=== PATIENT | female | born 1960 | race Caucasian/White ===

== ENCOUNTER 2019-08-19 17:44 | Observation (INO) | payer SELFPAY ==
[2019-08-19] MEDS ORDERED: Acetaminophen 325 MG TAB ONE (18:40)
[2019-08-19 20:20] VITALS: BMI 41.1
[2019-08-19] MEDS ORDERED: Nitroglycerin 0.4 MG TAB (25 Tab Bottle) PO PRN (20:23)
[2019-08-19] MEDS ORDERED: hydrALAZINE 20 MG/ML VIAL SLOW IVP PRN (20:25)
[2019-08-19] MEDS ORDERED: Sodium Chloride 0.9% 1,000 ML IV SCH (20:30)
--- NOTE | 2019-08-19 20:52 | HP ---
PRIMARY CARE PROVIDER: Dr. Arsen Acosta. CHIEF COMPLAINT: Chest pain. HISTORY OF PRESENT ILLNESS: Ms. Shrestha is a pleasant 59-year-old lady, who was seen at [facility] on 08/19/2019, following transfer from emergency room at [facility]. She reports that around 11:30 am, she developed retrosternal chest pain, dull, 8/10, associated with right upper extremity numbness. No known aggravating or relieving factors, constant and lasted 1 hour. She denies any nausea or vomiting. She reports that it was accompanied by shortness of breath. She also endorses cough that is dry as well as some chills. In the emergency room at [facility], she was found to be in hypertensive urgency. She received treatment for that and was subsequently transferred to [facility] for further management. REVIEW OF SYSTEMS: All systems were reviewed and found to be negative except for the pertinent positives mentioned above. PAST MEDICAL HISTORY: Hepatitis C and supraventricular tachycardia. PAST SURGICAL HISTORY: Knee surgery x2. SOCIAL HISTORY: The patient smokes half a pack of cigarettes a day. She denies alcohol use or recreational drug use. FAMILY HISTORY: Congestive heart failure and COPD in her mother. ALLERGIES: NO KNOWN DRUG ALLERGIES. CURRENT MEDICATIONS: None. PHYSICAL EXAMINATION: GENERAL: On examination, Ms. Shrestha is awake and alert, not in acute distress. VITAL SIGNS: Blood pressure is 151/90, pulse 79, respiratory rate 15, and oxygen saturation 99% on room air. She is afebrile. EYES: No scleral icterus, no conjunctival pallor. ENT: Moist mucosal membranes. No oropharyngeal erythema or exudates. NECK: Supple, nontender, trachea is midline. RESPIRATORY: Accessory muscles of breathing are not active. Chest wall movements are symmetric bilaterally. Lungs are clear to auscultation without wheeze, rhonchi, or crepitations. CARDIOVASCULAR: S1 and S2 are heard, regular. Peripheral pulses palpable. ABDOMEN: Soft, nontender, bowel sounds are heard. NEUROLOGIC: Cranial nerves 2 through 12 are intact. MUSCULOSKELETAL: Power is 5/5 in all 4 extremities. SKIN: No rashes or subcutaneous nodules. LYMPHATIC: No cervical lymphadenopathy. PSYCHIATRIC: Normal mood, normal affect. The patient is oriented to person, place, and time. BODY HABITUS: Morbid obesity, with a BMI of 41.2. LABORATORY DATA: Ms. Shrestha's labs and investigations were reviewed. I reviewed her 12-lead electrocardiogram, which shows normal sinus rhythm, no ST changes to suggest an acute coronary syndrome. I also reviewed her chest x-ray, which does not show any pulmonary infiltrates. She has normal white count, normal hemoglobin, normal platelet count, normal sodium, normal potassium, normal creatinine, elevated AST of 89, elevated ALT of 150, normal total bilirubin, normal troponin-I and normal BNP. ASSESSMENT AND PLAN: Ms. Shrestha is a pleasant 59-year-old lady who was seen at [facility] on 08/19/2019. Her problem list includes: 1. Chest pain: Etiology unclear, but given her risk factors, we will obtain a stress test. She will be monitored on telemetry. 2. Transaminitis: The patient has isolated transaminitis. We will check CK level to rule out musculoskeletal etiology for transaminases. 3. Supraventricular tachycardia: The patient is currently not in supraventricular tachycardia. We will monitor on telemetry. 4. Hepatitis C: Not an active issue at this time. 5. Tobacco use: The patient has been counseled regarding tobacco cessation. She has declined nicotine patch. Many thanks for allowing me to participate in your patient's care. Please feel free to contact me with any questions or concerns. LEVEL OF RISK: High. LEVEL OF COMPLEXITY: High. Job ID: [id number]
[2019-08-19] MEDS ORDERED: Acetaminophen 325 MG TAB PO PRN (21:05)
[2019-08-19 21:37] LABS: Troponin I Less than 0.010 ng/mL (< 0.028)
[2019-08-20 04:51] LABS: #Basophils 0.1 thou/uL (0.0-0.2); #Eosinphils 0.3 thou/uL (0.0-0.7); #Lymphocytes 3.1 thou/uL (1.20-3.40); #Monocytes 0.5 thou/uL (0.11-0.59); #Neutrophils 3.6 thou/uL (1.40-6.50); %Basophils 1.2 % (0.0-1.0); %Eosinophils 3.3 % (0.0-10.0); %Lymphocytes 40.9 % (21.0-51.0); %Monocytes 6.8 % (0.0-10.0); %Neutrophils 47.8 % (42.0-75.0); Hemoglobin 14.6 g/dL (12.0-16.0); Mean Corpuscular HGB CONC 32.2 g/dL (32.0-36.0); Mean Corpuscular Hemoglobin 29.5 pg (27.0-31.0); Mean Corpuscular Volume 91.8 fL (78.0-98.0); Mean Platelet Volume 7.3 fL (7.4-10.4); Platelet Count 240 thou/uL (130-400); RBC Distribution Width 12.1 % (11.5-14.5); Red Blood Cell (RBC) Count 4.93 mill/uL (4.20-5.40); White Blood Cell (WBC) Count 7.5 thou/uL (4.8-10.8)
[2019-08-20 05:13] LABS: ALT (SGPT) 113 U/L (8-55); AST (SGOT) 57 U/L (5-34); Albumin 3.6 g/dL (3.5-5.0); Alkaline Phosphatase 71 U/L (40-110); Anion Gap 7 mmol/L (10-20); BUN (Urea Nitrogen) 18 mg/dL (9.8-20.1); Bilirubin, Total 0.5 mg/dL (0.2-1.2); Calc. Creatinine Clearance 113 mL/min (70-130); Carbon Dioxide 25 mmol/L (22-29); Chloride 112 mmol/L (98-107); Estimated GFR-MDRD 59; Globulin 3.1 g/dL (2.4-3.5); Glucose 112 mg/dL (70-105); Potassium 4.1 mmol/L (3.5-5.1); Protein, Total 6.7 g/dL (6.0-8.3); Sodium 140 mmol/L (136-145)
[2019-08-20 08:00] VITALS: TEMP 98.9
[2019-08-20] MEDS ORDERED: Aspirin 325 mg Enteric Coated Tablet PO SCH (09:00)
[2019-08-20] MEDS ORDERED: Amlodipine 5 MG TAB PO SCH (09:00)
--- NOTE | 2019-08-20 10:44 | NM ---
EXAM: Cardiac SPECT HISTORY: Chest pain PROTOCOL: Stress only, single isotope TYPE OF STRESS: Pharmacologic stress with adenosine was monitored and interpreted by Dr. Marroquin RADIOPHARMACEUTICAL: 30 mCi technetium 99m-sestamibi injected intravenously FINDINGS: Homogeneous tracer distribution is seen in the myocardial segments on the post stress images. Gated SPECT LVEF: 62% Wall motion exam: Normal IMPRESSION: Normal post stress myocardial perfusion scan.
[2019-08-20 11:42] VITALS: BP 126/65
--- NOTE | 2019-08-21 03:19 | DIS ---
DATE OF ADMISSION: 08/19/2019 DATE OF DISCHARGE: 08/20/2019 PRIMARY CARE PROVIDER: Arsen Acosta, DISCHARGE DIAGNOSES: 1. Chest pain. 2. Chest pain most likely secondary to musculoskeletal etiology. 3. Hypertensive urgency. CONDITION OF PATIENT ON THE DAY OF DISCHARGE: Stable. I assessed Ms. Shrestha on the day of discharge. She denies any chest pain or shortness of breath. Vital signs are stable. S1 and S2 are heard, regular. Lungs are clear to auscultation bilaterally. HOSPITAL COURSE: Ms. Shrestha is a pleasant 59-year-old lady, who was admitted to [facility] on August 19, 2019, for hypertensive urgency and chest pain. She was started on amlodipine with improvement in blood pressure. She underwent nuclear stress test, which was normal. Left ventricular ejection fraction was 62%. She also had a negative D-dimer to rule out pulmonary embolism. She is being discharged home in a stable condition. She has been advised to stop smoking. She has also been advised to check her blood pressure and heart rate 3 times a day and show the readings to her primary care provider. She does have elevated AST and ALT. She has been advised to follow up with primary care provider for investigation of the same. On the day of discharge, she has white count of 7500, hemoglobin 14.6, platelet count 240,000. Sodium 140, potassium 4.1, total bilirubin 0.5, AST 57, ALT 113, and alkaline phosphatase 71. CK level was normal during this hospitalization at 80. DISCHARGE DESTINATION: Home. POST-ACUTE CARE FOLLOWUP: With primary care provider in 3 to 5 days time. ACTIVITY: As tolerated. DIET: Heart healthy diet. Job ID: [id number]
== END 2019-08-20 15:07 | disposition home or self-care (01) ==
LOC: ERS 17:44 → 2SW 19:59
PROVIDERS: ADMIT Internal Medicine; ATTEND Internal Medicine
DX: R07.2 Precordial pain (principal); I16.0 Hypertensive urgency; F17.210 Nicotine dependence, cigarettes, uncomplicated; R74.0 Nonspecific elevation of levels of transaminase and lactic acid dehydrogenase [LDH]; Z82.49 Family history of ischemic heart disease and other diseases of the circulatory system
CPT/HCPCS: 36415; 78452; 80053; 82550; 85025; 85379; 93005; 93017; 94760; 96360; 96361; A9500; G0378; J0153

== ENCOUNTER 2019-11-11 18:39 | Inpatient (IN) | payer SELFPAY ==
[2019-11-11] MEDS ORDERED: Diltiazem 125 MG/25 ML ONE (19:39)
[2019-11-11] MEDS ORDERED: Diltiazem HCl 125 MG, Admixture Fee 1 EACH in Sodium Chloride 0.9% 100 ML IVPB SCH (23:45)
[2019-11-11] MEDS ORDERED: Ondansetron PF 4 MG/2 ML Vial IVP PRN (23:46)
[2019-11-11] MEDS ORDERED: Acetaminophen 325 MG TAB PO PRN (23:46)
[2019-11-11] MEDS ORDERED: Ondansetron ODT 4 MG TAB SL PRN (23:46)
[2019-11-12] MEDS ORDERED: Diltiazem HCl 125 MG, Admixture Fee 1 EACH in Sodium Chloride 0.9% 100 ML IVPB SCH ×2 (02:45→14:00)
[2019-11-12] MEDS ORDERED: Ondansetron ODT 4 MG TAB PO PRN (09:05)
[2019-11-12] MEDS ORDERED: Ondansetron PF 4 MG/2 ML Vial IVP PRN (09:05)
[2019-11-12] MEDS ORDERED: Senokot S 8.6-50 MG TAB PO PRN (09:05)
[2019-11-12 10:20] VITALS: BMI 41.3
[2019-11-12] MEDS: cefTRIAXone\\ROCEPHIN 1 GM in Sodium Chloride 0.9% 100 ML IVPB SCH (11:41)
[2019-11-12] MEDS: Azithromycin 250 MG TAB PO SCH (11:41)
--- NOTE | 2019-11-12 22:53 | HP ---
CHIEF COMPLAINT: Shortness of breath and cough. HISTORY OF PRESENT ILLNESS: A 59-year-old female, with a remote history of supraventricular tachycardia and hypertension, presenting with history of not able to breath completely and non-productive cough. Initially flu test was negative. CT PE negative. Chest x-ray showed right middle lobe infiltrate. She also had AFib with RVR and elevated white count of 11.8. The patient did not have any travel or sick contacts. She has a dog at home. She is transferred from [facility] after receiving 25 mg of diltiazem as well as 4 L of fluid. Her initial presentation suggestive of sepsis due to pneumonia along with AFib with RVR. REVIEW OF SYSTEMS: 13-point review of systems reviewed with the patient. The patient did have some subjective fever. No nausea, vomiting, abdominal pain, constipation, diarrhea, hematuria. She had some pleuritic pain. No headache, blurriness, tingling, numbness in her extremities. Rest of the review of systems is negative. ALLERGIES: SHE HAS NO KNOWN DRUG ALLERGIES. PAST MEDICAL HISTORY: Hypertension and a remote history of SVT. MEDICATIONS: Amlodipine 5 mg daily. SOCIAL HISTORY: She smokes less than pack a day for over 20 years. No alcohol use. FAMILY HISTORY: Father's health condition unknown. Mother had COPD and CHF. PHYSICAL EXAMINATION: VITAL SIGNS: Temperature 98.2, pulse 89, blood pressure is 143/76, saturating 93% in room air. GENERAL: The patient is alert, oriented, well-developed, well-nourished female , not in any acute distress. Does not appear toxic. HEENT: Pupils equal, round, reactive to light. Anicteric. Mucous membranes moist. CARDIOVASCULAR: She has tachycardia with irregular rhythm. No murmurs appreciated. LUNGS: Clear to auscultation bilaterally without wheezing, rales, or rhonchi. ABDOMEN: Soft, nontender, nondistended. Good bowel sounds. EXTREMITIES: Without any pitting edema. NEURO: No focal deficits. LABORATORY DATA: Her labs in [facility] showed white count of 11.8. TSH done here at the [facility] showed 2.68. IMPRESSION AND PLAN: This is a 59-year-old female, with a history of hypertension, presenting with; 1. Community-acquired pneumonia. 2. Sepsis secondary to pneumonia. 3. Atrial fibrillation with rapid ventricular response. First episode of atrial fibrillation and probably triggered by her pneumonia. She was started on Cardizem drip. I am going to initiate the Cardizem p.o. and wean her off the drip. If TSH is normal we will get the 2D echo. EP consult placed. Her CHADS-VASc score is 1. Probably need anticoagulation. I will await the echo report. If there is no valvular issues , consider starting her on Xarelto. 4. Hypertension. Again, we are starting her Cardizem p.o. We will not start her on her home regimen of Norvasc. 5. Community-acquired pneumonia. She is getting ceftriaxone and Zithromax. We will follow the clinical course. 6. Deep venous thrombosis prophylaxis. Lovenox. Job ID: [id number] MTDD
--- NOTE | 2019-11-13 03:20 | CON ---
DATE OF CONSULTATION: 11/12/2019 HISTORY OF PRESENT ILLNESS: I am seeing Ms. Shrestha at our [facility] Telemetry Floor as an electrophysiology curriculum consultant. Her problems are: 1. Newly found persisting atrial fibrillation/flutter. 2. Possible pneumonia/sepsis. 3. Elevated BMI. 4. Prior history of SVT. 5. History of negative stress test from 08/19/2019 with LVEF of 62%. 6. History of hepatitis C. ALLERGIES: NONE NOTED. MEDICATIONS: At home included amlodipine. SUBJECTIVE: Ms. Shrestha was admitted with progressive cough, fevers and was noted to be in irregular rapid heart rates, diagnosed with atrial flutter after adenosine administration. She was also found to have consolidation and infiltrate at the right posteromedial lung base. She was diagnosed with pneumonia, so receiving antibiotics. Overall, she is feeling better after IV diltiazem was administered. She currently has minimal cough. Denies PND or orthopnea. Has still some fatigue. Does not pass out. No PND or orthopnea noted. No neurological deficits. No bleeding issues. Rest of 12-point system otherwise unremarkable. PAST MEDICAL HISTORY: As above. The patient has history of SVT in the past and she was evaluated in 2017 in the [facility] with event monitor. She never had an EP study. She does not see a substitute nurse regularly. She denies any prior additional heart disease. SOCIAL HISTORY: She is a smoker. Denies EtOH or drug use. 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 PAST SURGICAL HISTORY: Significant for knee surgery x2. FAMILY HISTORY: Not contributory, but significant for heart failure and COPD in her mother. PHYSICAL EXAMINATION: VITAL SIGNS: Blood pressure 133/77, heart rate 92, respiratory rate is 18, and temperature 98.5 degrees Fahrenheit. GENERAL: Alert and oriented woman with elevated BMI. NECK: Supple. Jugular veins are difficult to visualize, but does not appear distended. CHEST: Coarse with few crackles at the base. HEART: Heart sounds are irregularly irregular. S1, S2 variable. No murmur or gallop. ABDOMEN: Benign. Bowel sounds positive. EXTREMITIES: Lower extremities without edema, clubbing, or cyanosis. Pulses are adequate. NEUROLOGIC: The patient is nonfocal. MUSCULOSKELETAL: No joint swelling or deformity. SKIN: Without rash. DATABASE: EKG is reviewed. Baseline EKG is consistent with typical isthmus-dependent atrial flutter on . Subsequent EKGs reveal atrial flutter, but conversion to sinus rhythm and then fibrillation is also noted transiently. Heart rates are improving with diltiazem. LABORATORY DATA: White cell count 11.8, hemoglobin is 18.7, platelet count is 429. The D-dimer is 0.62. Sodium 139, potassium 3.8, BUN is 18, and creatinine is 1.04. ASSESSMENT AND PLAN: Ms. Shrestha is a pleasant 59-year-old woman with markedly elevated BMI, hepatitis C, and history of supraventricular tachycardia, though that never been evaluated by EP/substitute nurse. She is now presenting with recurrent arrhythmia, appears to be typical isthmus-dependent atrial flutter in some morphologies. In addition, she also has transient atrial fibrillation and on occasion, she converts to sinus rhythm. I discussed the mechanism of her atrial arrhythmia with her. Clearly, she is symptomatic with the rhythm and rate, needs rate control at this point. She could be considered for invasive EP evaluation, possibly cavotricuspid isthmus ablation after recovery of her pneumonia. This could be done as in or outpatient. For now, continue antibiotic therapy and continue anticoagulation with full dose Lovenox. Routine echocardiogram would be helpful. We will follow up with you. Thank for allowing me to participate in the care of this patient. Job ID: [id number] SAM
[2019-11-13 04:49] LABS: #Basophils 0.1 thou/uL (0.0-0.2); #Eosinphils 0.3 thou/uL (0.0-0.7); #Lymphocytes 3.5 thou/uL (1.20-3.40); #Monocytes 0.9 thou/uL (0.11-0.59); #Neutrophils 5.7 thou/uL (1.40-6.50); %Basophils 0.6 % (0.0-1.0); %Eosinophils 3.2 % (0.0-10.0); %Lymphocytes 33.1 % (21.0-51.0); %Monocytes 8.7 % (0.0-10.0); %Neutrophils 54.4 % (42.0-75.0); Hemoglobin 14.4 g/dL (12.0-16.0); Mean Corpuscular HGB CONC 31.7 g/dL (32.0-36.0); Mean Corpuscular Hemoglobin 29.5 pg (27.0-31.0); Mean Corpuscular Volume 93.3 fL (78.0-98.0); Mean Platelet Volume 7.7 fL (7.4-10.4); Platelet Count 285 thou/uL (130-400); RBC Distribution Width 12.2 % (11.5-14.5); Red Blood Cell (RBC) Count 4.86 mill/uL (4.20-5.40); White Blood Cell (WBC) Count 10.5 thou/uL (4.8-10.8)
[2019-11-13 05:11] LABS: ALT (SGPT) 56 U/L (8-55); AST (SGOT) 38 U/L (5-34); Albumin 3.2 g/dL (3.5-5.0); Alkaline Phosphatase 68 U/L (40-110); Anion Gap 12 mmol/L (10-20); BUN (Urea Nitrogen) 10 mg/dL (9.8-20.1); Bilirubin, Total 0.5 mg/dL (0.2-1.2); Calc. Creatinine Clearance 143 mL/min (70-130); Calcium 8.8 mg/dL (7.8-10.44); Carbon Dioxide 20 mmol/L (22-29); Chloride 108 mmol/L (98-107); Estimated GFR-MDRD 77; Globulin 3.1 g/dL (2.4-3.5); Glucose 96 mg/dL (70-105); Magnesium 1.9 mg/dL (1.6-2.6); Protein, Total 6.3 g/dL (6.0-8.3); Sodium 136 mmol/L (136-145)
[2019-11-13] MEDS ORDERED: Enoxaparin Sodium 40 MG/0.4 ML SYRINGE SC SCH (09:00)
[2019-11-13] MEDS ORDERED: Azithromycin 200 MG/5 ML Oral Suspension PO SCH (09:00)
[2019-11-13] MEDS: Flecainide 50 MG TAB PO SCH ×2 (09:53→20:09)
[2019-11-13] MEDS: Azithromycin 250 MG TAB PO SCH (09:54)
[2019-11-13] MEDS: cefTRIAXone\\ROCEPHIN 1 GM in Sodium Chloride 0.9% 100 ML IVPB SCH (09:54)
--- NOTE | 2019-11-13 10:44 | PDOC.EP ---
- Subjective Date: 11/13/19 Time: 08:00 Interval History: follow up for atrial arrhythmias. Now in SR. Ongoing malaise with pneumonia. No cardiac complaints today. - Review of Systems Constitutional: reports: malaise, weakness. denies: fever, sweats Respiratory: reports: cough, SOB with excertion. denies: hemoptysis, pleuritic pain, shortness of breath, wheezing Cardiology: reports: chest pain, heart racing, light headedness, orthopnea, paroxysmal noc. dyspnea Gastrointestinal: reports: abdominal pain, constipation, diarrhea - Objective Allergies/Adverse Reactions: Allergies Allergy/AdvReac Type Severity Reaction Status Date / Time No Known Drug Allergies Allergy Verified 11/12/19 10:12 Current Medications Acetaminophen (Tylenol) 650 mg PO Q4H PRN PRN Reason: Headache/Fever/Mild Pain (1-3) Azithromycin (Zithromax) 500 mg PO DAILY [facility] Last Admin: 11/13/19 09:54 Dose: 500 mg Diltiazem HCl (Cardizem) 60 mg PO BID [facility] Last Admin: 11/13/19 09:54 Dose: 60 mg Diltiazem HCl (Cardizem) 30 mg PO Q6HR PRN PRN Reason: HR >120 sustained Enoxaparin Sodium (Lovenox) 80 mg SC 0900,2100 [facility] Flecainide Acetate (Tambocor) 50 mg PO BID [facility] Last Admin: 11/13/19 09:53 Dose: 50 mg Ceftriaxone Sodium 1 gm/ (Sodium Chloride) 100 mls @ 200 mls/hr IVPB Q24HR [facility] Last Admin: 11/13/19 09:54 Dose: 100 mls Ondansetron HCl (Zofran Odt) 4 mg PO Q6H PRN PRN Reason: Nausea/Vomiting Last Admin: 11/12/19 19:46 Dose: 4 mg Ondansetron HCl (Zofran) 4 mg IVP Q6H PRN PRN Reason: Nausea/Vomiting Senna/Docusate Sodium (Senokot S) 2 tab PO BID PRN PRN Reason: Constipation Sodium Chloride (Flush - Normal Saline) 10 ml IVF Q12HR [facility] Last Admin: 11/13/19 09:54 Dose: 10 ml Sodium Chloride (Flush - Normal Saline) 10 ml IVF PRN PRN PRN Reason: Saline Flush Vital Signs & Weight: Vital Signs Temp Pulse Resp BP Pulse Ox 11/13/19 07:55 98 F 75 18 109/53 L 95 11/13/19 03:40 98.1 F 71 18 128/66 96 11/13/19 00:00 97.9 F 71 20 110/57 L 97 Weight 248 lb 7 oz I/O: I/O 11/12/19 11/13/19 11/14/19 06:59 06:59 06:59 Intake Total 1010 Balance 1010 - Quality Measures Condition: Atrial Fibrillation/Flutter (hx or current) (starting xarelto) CV meds: Xarelto: Yes - Physical Exam General: alert & oriented x3, appears well, no apparent distress, speech clear, affect appropriate HEENT: mucus membranes moist, normocephaly Neck: supple neck, midline trachea, no JVD/HJR, no masses, no bruit, no lymphadenopathy, no thromegaly Cardiology: regular rate and rhythm, no murmur, regular rate, regular rhythm, PMI nondisplaced Lungs: decreased breath sounds (RML decreased otherwise CTA) Neurology: cranial nerve 2-12 intact, grossly intact, motor function intact, sensory function intact, negative rhomberg, coordination normal, no lateralizing findings - Chadsvasc Risk factors Hypertension: 1 Female: 1 Risk Score: 2 - Labs Result Diagrams: 11/13/19 04:20 11/13/19 04:20 - EKG Interpretation EKG Method: Telemetry EKG shows: Sinus rhythm - Assessment/Plan Assessment/Plan: 1. Newly found persisting atrial fibrillation/flutter. 2. Possible pneumonia/sepsis. 3. Elevated BMI. 4. Prior history of SVT. 5. History of negative stress test from 08/19/2019 with LVEF of 62%. 6. History of hepatitis C. Started on flecainide 50mg PO BID. May require higher dose with her obesity. Staring NOAC with Xarelto for Chads2-vasc score of 2 (female, HTN). Plan for outpatient ablation once recovered from pneumonia/medical issues.
--- NOTE | 2019-11-13 13:04 | PDOC.HOSPP ---
- Subjective Encounter Date: 11/13/19 Encounter Time: 10:25 Subjective: still has cough, dry. AC started, - Objective Vital Signs & Weight: Vital Signs (12 hours) Temp Pulse Resp BP Pulse Ox 11/13/19 11:44 97.9 F 70 20 133/63 97 11/13/19 07:55 98 F 75 18 109/53 L 95 11/13/19 03:40 98.1 F 71 18 128/66 96 Weight Weight 248 lb 7 oz I&O: 11/12/19 11/13/19 11/14/19 06:59 06:59 06:59 Intake Total 1010 Balance 1010 Result Diagrams: 11/13/19 04:20 11/13/19 04:20 Hospitalist ROS - Medication Medications: Active Medications Generic Name Dose Route Start Last Admin Trade Name Freq PRN Reason Stop Dose Admin Azithromycin 500 mg 11/12/19 09:00 11/13/19 09:54 Zithromax PO 500 mg DAILY BLANK Administration Diltiazem HCl 60 mg 11/12/19 21:00 11/13/19 09:54 Cardizem PO 60 mg BID BLANK Administration Flecainide Acetate 50 mg 11/13/19 09:00 11/13/19 09:53 Tambocor PO 50 mg BID BLANK Administration Ceftriaxone Sodium 1 gm/ 100 mls @ 200 mls/hr 11/12/19 10:00 11/13/19 09:54 Sodium Chloride IVPB 100 mls Q24HR BLANK Administration Ondansetron HCl 4 mg 11/12/19 09:05 11/12/19 19:46 Zofran Odt PO 4 mg Q6H PRN Administration Nausea/Vomiting Sodium Chloride 10 ml 11/12/19 21:00 11/13/19 09:54 Flush - Normal Saline IVF 10 ml Q12HR BLANK Administration - Exam General Appearance: NAD, awake alert Eye: PERRL ENT: normocephalic atraumatic Neck: supple Heart: irregular Respiratory: normal chest expansion, rales, rhonchi, wheezes Gastrointestinal: soft, non-tender, normal bowel sounds Musculoskeletal: normal tone Hosp A/P - Plan Afib w.. RVR Recurrent arrythmia hx of SVT and no intervention in the past Sepsis 2/2 PNA Comm acq pneumonia Hepatitis C --TSH in nl range --Echo 55%- no valve abn. -started on flecainide for rate control -SYLVIE batres. xcarelto [cr ok] -once clinically improved, plan for dc and outpt workup with EP. --appreciate the help from Dr. Calvert.
[2019-11-13] MEDS ORDERED: guaiFENesin 200 MG TAB PO SCH ×2 (13:15→17:00)
[2019-11-13] MEDS: guaiFENesin 200 MG TAB PO SCH ×2 (17:58→20:10)
[2019-11-13] MEDS: Rivaroxaban 10 MG TAB PO SCH (17:59)
[2019-11-13] MEDS ORDERED: Enoxaparin Sodium 80 MG/0.8 ML SYRINGE SC SCH (21:00)
[2019-11-13] MEDS ORDERED: Melatonin 3 MG TAB PO PRN (23:40)
[2019-11-13] MEDS ORDERED: Melatonin 3 MG TAB PO SCH (23:45)
[2019-11-14] MEDS: guaiFENesin 200 MG TAB PO SCH ×6 (01:46→20:05)
[2019-11-14 04:24] LABS: Anion Gap 12 mmol/L (10-20); BUN (Urea Nitrogen) 9 mg/dL (9.8-20.1); Calc. Creatinine Clearance 145 mL/min (70-130); Calcium 9.2 mg/dL (7.8-10.44); Carbon Dioxide 24 mmol/L (22-29); Chloride 107 mmol/L (98-107); Estimated GFR-MDRD 78; Glucose 96 mg/dL (70-105); Potassium 3.9 mmol/L (3.5-5.1); Sodium 139 mmol/L (136-145)
[2019-11-14] MEDS: Flecainide 50 MG TAB PO SCH ×2 (09:09→20:05)
[2019-11-14] MEDS: cefTRIAXone\\ROCEPHIN 1 GM in Sodium Chloride 0.9% 100 ML IVPB SCH (09:09)
[2019-11-14] MEDS: Azithromycin 250 MG TAB PO SCH (09:09)
[2019-11-14] MEDS ORDERED: Flecainide 50 MG TAB PO SCH (10:30)
--- NOTE | 2019-11-14 11:29 | PDOC.EP ---
- Subjective Date: 11/14/19 Time: 11:25 Interval History: follow up for atrial arrhythmias. having mild nausea today that resolved with zofran. having occasional heart racing but not reporting anything more than mild fatigue so far. - Review of Systems Constitutional: reports: weakness. denies: chills, fever, malaise, sweats Respiratory: reports: SOB with excertion. denies: cough, dry, hemoptysis, pleuritic pain, shortness of breath Cardiology: reports: heart racing, palpitations. denies: chest pain, edema, light headedness Gastrointestinal: reports: nausea. denies: abdominal pain, constipation, diarrhea, vomitting - Objective Allergies/Adverse Reactions: Allergies Allergy/AdvReac Type Severity Reaction Status Date / Time No Known Drug Allergies Allergy Verified 11/12/19 10:12 Current Medications Acetaminophen (Tylenol) 650 mg PO Q4H PRN PRN Reason: Headache/Fever/Mild Pain (1-3) Azithromycin (Zithromax) 500 mg PO DAILY [facility] Last Admin: 11/14/19 09:09 Dose: 500 mg Diltiazem HCl (Cardizem) 60 mg PO BID [facility] Last Admin: 11/14/19 09:09 Dose: 60 mg Diltiazem HCl (Cardizem) 30 mg PO Q6HR PRN PRN Reason: HR >120 sustained Flecainide Acetate (Tambocor) 100 mg PO Q12HR [facility] Flecainide Acetate (Tambocor) 50 mg PO NOW [facility] Stop: 11/14/19 12:00 Last Admin: 11/14/19 11:02 Dose: 50 mg Guaifenesin (Organ-I Nr) 400 mg PO Q4HR [facility] Stop: 11/15/19 17:01 Last Admin: 11/14/19 09:09 Dose: 400 mg Ceftriaxone Sodium 1 gm/ (Sodium Chloride) 100 mls @ 200 mls/hr IVPB Q24HR [facility] Last Admin: 11/14/19 09:09 Dose: 100 mls Melatonin (Melatonin) 3 mg PO HS PRN PRN Reason: Insomnia Ondansetron HCl (Zofran Odt) 4 mg PO Q6H PRN PRN Reason: Nausea/Vomiting Last Admin: 11/12/19 19:46 Dose: 4 mg Ondansetron HCl (Zofran) 4 mg IVP Q6H PRN PRN Reason: Nausea/Vomiting Last Admin: 11/14/19 09:10 Dose: 4 mg Rivaroxaban (Xarelto) 20 mg PO 1700 BLANK Last Admin: 11/13/19 17:59 Dose: 20 mg Senna/Docusate Sodium (Senokot S) 2 tab PO BID PRN PRN Reason: Constipation Sodium Chloride (Flush - Normal Saline) 10 ml IVF Q12HR BLANK Last Admin: 11/14/19 09:15 Dose: 10 ml Sodium Chloride (Flush - Normal Saline) 10 ml IVF PRN PRN PRN Reason: Saline Flush Vital Signs & Weight: Vital Signs Temp Pulse Resp BP Pulse Ox 11/14/19 07:48 96 11/14/19 07:43 98.0 F 107 H 18 128/79 96 11/14/19 03:44 98.6 F 65 20 124/65 95 Weight 248 lb 7 oz I/O: I/O 11/13/19 11/14/19 11/15/19 06:59 06:59 06:59 Intake Total 1010 2040 Output Total 750 Balance 1010 1290 - Quality Measures Condition: Atrial Fibrillation/Flutter (hx or current) (starting xarelto) CV meds: Xarelto: Yes - Physical Exam General: alert & oriented x3, appears well, no apparent distress, speech clear, affect appropriate HEENT: mucus membranes moist, normocephaly, EOMI Neck: supple neck, midline trachea, no JVD/HJR Cardiology: irregularly irregular, tachycardia Lungs: clear to auscultation, normal breath sounds, no wheeze, rales, rhonchi Neurology: cranial nerve 2-12 intact, grossly intact, sensory function intact Abdomen: unremarkable, active bowel sounds, no pulsations/bruits Extremities: dry, strong pulses, warm - Labs Result Diagrams: 11/13/19 04:20 11/14/19 03:55 - EKG Interpretation EKG Method: Telemetry EKG shows: Atypical atrial flutter (paroxysmal A Fib/ flutter) - Assessment/Plan Assessment/Plan: 1. Newly found persisting atrial fibrillation/flutter. 2. Possible pneumonia/sepsis. 3. Elevated BMI. 4. Prior history of SVT. 5. History of negative stress test from 08/19/2019 with LVEF of 62%. 6. History of hepatitis C. Started on flecainide 50mg PO BID and is having paroxysmal episodes of Atrial flutter with RVR. Flecainide is working to organize fib in to flutter but dose increased to 100mg BID to maintain SR more effectively. Minimally symptomatic with RVR. Now on Xarelto for Chads2-vasc score of 2 (female, HTN). Plan for outpatient ablation once recovered from pneumonia/medical issues. watch for QTc prolongation with flecainide concurrent with remaining azithromycin and zofran. 12 lead EKG ordered.
--- NOTE | 2019-11-14 14:08 | PDOC.HOSPP ---
- Subjective Encounter Date: 11/14/19 Encounter Time: 11:30 Subjective: less oucgh, but not feeling good, stomach queasy and no pain. aflutter, flecainide dose increased; pt has finfer tip numbness, chronic and vascular, venous insuff'y in the LE - Objective Vital Signs & Weight: Vital Signs (12 hours) Temp Pulse Resp BP Pulse Ox 11/14/19 11:53 97.5 F L 144 H 14 130/70 95 11/14/19 07:48 96 11/14/19 07:43 98.0 F 107 H 18 128/79 96 11/14/19 03:44 98.6 F 65 20 124/65 95 Weight Weight 248 lb 7 oz I&O: 11/13/19 11/14/19 11/15/19 06:59 06:59 06:59 Intake Total 1010 2040 Output Total 750 Balance 1010 1290 Result Diagrams: 11/13/19 04:20 11/14/19 03:55 Hospitalist ROS - Medication Medications: Active Medications Generic Name Dose Route Start Last Admin Trade Name Freq PRN Reason Stop Dose Admin Azithromycin 500 mg 11/12/19 09:00 11/14/19 09:09 Zithromax PO 500 mg DAILY BLANK Administration Diltiazem HCl 60 mg 11/12/19 21:00 11/14/19 09:09 Cardizem PO 60 mg BID BLANK Administration Guaifenesin 400 mg 11/13/19 17:00 11/14/19 13:06 Organ-I Nr PO 11/15/19 17:01 400 mg Q4HR BLANK Administration Ceftriaxone Sodium 1 gm/ 100 mls @ 200 mls/hr 11/12/19 10:00 11/14/19 09:09 Sodium Chloride IVPB 100 mls Q24HR BLANK Administration Ondansetron HCl 4 mg 11/12/19 09:05 11/12/19 19:46 Zofran Odt PO 4 mg Q6H PRN Administration Nausea/Vomiting Ondansetron HCl 4 mg 11/12/19 09:05 11/14/19 09:10 Zofran IVP 4 mg Q6H PRN Administration Nausea/Vomiting Rivaroxaban 20 mg 11/13/19 17:00 11/13/19 17:59 Xarelto PO 20 mg 1700 BLANK Administration Sodium Chloride 10 ml 11/12/19 21:00 11/14/19 09:15 Flush - Normal Saline IVF 10 ml Q12HR BLANK Administration - Exam General Appearance: NAD, awake alert Eye: PERRL ENT: normocephalic atraumatic Neck: supple Heart: RRR Respiratory: CTAB Gastrointestinal: normal bowel sounds Neurological: cranial nerve grossly intact, no focal deficits Hosp A/P - Plan Afib w.. RVR Recurrent arrythmia hx of SVT and no intervention in the past Sepsis 2/2 PNA Comm acq pneumonia Hepatitis C --TSH in nl range --Echo 55%- no valve abn. -started on flecainide for rate control -AC w.. xarelto [cr ok] -once clinically improved, plan for dc and outpt workup with EP. --appreciate the help from Dr. Calvert. chronic tingling and numbness ion her left hand fingers -pt not diabetic. - can start neurontin or lyrica as op. chronic venous insufficienty in LE -none urgent for the above 2 - PCP followup. once clinically better and EP clears, plan for dc home.
[2019-11-14] MEDS ORDERED: Metoprolol Tartrate 5 MG/5 ML VIAL IVP PRN (14:49)
--- NOTE | 2019-11-14 15:45 | PDOC.HOSPP ---
- Subjective Encounter Date: 11/14/19 Encounter Time: 10:00 - Objective Vital Signs & Weight: Vital Signs (12 hours) Temp Pulse Resp BP Pulse Ox 11/14/19 14:25 108 H 18 11/14/19 11:53 97.5 F L 144 H 14 130/70 95 11/14/19 07:48 96 11/14/19 07:43 98.0 F 107 H 18 128/79 96 11/14/19 03:44 98.6 F 65 20 124/65 95 Weight Weight 248 lb 7 oz I&O: 11/13/19 11/14/19 11/15/19 06:59 06:59 06:59 Intake Total 1010 2040 Output Total 750 Balance 1010 1290 Result Diagrams: 11/13/19 04:20 11/14/19 03:55 Hospitalist ROS - Medication Medications: Active Medications Generic Name Dose Route Start Last Admin Trade Name Freq PRN Reason Stop Dose Admin Azithromycin 500 mg 11/12/19 09:00 11/14/19 09:09 Zithromax PO 500 mg DAILY BLANK Administration Diltiazem HCl 60 mg 11/12/19 21:00 11/14/19 09:09 Cardizem PO 60 mg BID BLANK Administration Guaifenesin 400 mg 11/13/19 17:00 11/14/19 13:06 Organ-I Nr PO 11/15/19 17:01 400 mg Q4HR BLANK Administration Ceftriaxone Sodium 1 gm/ 100 mls @ 200 mls/hr 11/12/19 10:00 11/14/19 09:09 Sodium Chloride IVPB 100 mls Q24HR BLANK Administration Ondansetron HCl 4 mg 11/12/19 09:05 11/12/19 19:46 Zofran Odt PO 4 mg Q6H PRN Administration Nausea/Vomiting Ondansetron HCl 4 mg 11/12/19 09:05 11/14/19 09:10 Zofran IVP 4 mg Q6H PRN Administration Nausea/Vomiting Rivaroxaban 20 mg 11/13/19 17:00 11/13/19 17:59 Xarelto PO 20 mg 1700 BLANK Administration Sodium Chloride 10 ml 11/12/19 21:00 11/14/19 09:15 Flush - Normal Saline IVF 10 ml Q12HR BLANK Administration Hosp A/P - Plan Afib w.. RVR Recurrent arrythmia hx of SVT and no intervention in the past Sepsis 2/2 PNA Comm acq pneumonia Hepatitis C --TSH in nl range --Echo 55%- no valve abn. -started on flecainide for rate control -AC w.. xarelto [cr ok] -once clinically improved, plan for dc and outpt workup with EP. --appreciate the help from Dr. Calvert. chronic tingling and numbness ion her left hand fingers -pt not diabetic. - can start neurontin or lyrica as op. chronic venous insufficienty in LE -none urgent for the above 2 - PCP followup. once clinically better and EP clears, plan for dc home.
[2019-11-14] MEDS: Rivaroxaban 10 MG TAB PO SCH (17:51)
[2019-11-14] MEDS: Acetaminophen 325 MG TAB PO PRN (20:06)
[2019-11-15] MEDS: guaiFENesin 200 MG TAB PO SCH ×4 (00:45→14:32)
[2019-11-15] MEDS: Azithromycin 250 MG TAB PO SCH (09:15)
[2019-11-15] MEDS: Flecainide 50 MG TAB PO SCH (09:15)
[2019-11-15] MEDS: Acetaminophen 325 MG TAB PO PRN (09:25)
[2019-11-15] MEDS: cefTRIAXone\\ROCEPHIN 1 GM in Sodium Chloride 0.9% 100 ML IVPB SCH (10:34)
--- NOTE | 2019-11-15 13:27 | PDOC.EP ---
- Subjective Date: 11/15/19 Time: 09:00 Interval History: follow up for atrial arrhythmia management. Feels well. She is having some cough and shortness of breath. She is walking frequently in the halls. No cardiac complaints today. - Review of Systems Constitutional: denies: chills, fever, malaise, sweats, weakness, other Respiratory: reports: cough, SOB with excertion, sputum. denies: pleuritic pain , shortness of breath, wheezing Cardiology: denies: chest pain, edema, heart racing, light headedness, orthopnea , paroxysmal noc. dyspnea Gastrointestinal: denies: abdominal pain, constipation, diarrhea - Objective Allergies/Adverse Reactions: Allergies Allergy/AdvReac Type Severity Reaction Status Date / Time No Known Drug Allergies Allergy Verified 11/12/19 10:12 Current Medications Acetaminophen (Tylenol) 650 mg PO Q4H PRN PRN Reason: Headache/Fever/Mild Pain (1-3) Last Admin: 11/15/19 09:25 Dose: 650 mg Azithromycin (Zithromax) 500 mg PO DAILY [facility] Last Admin: 11/15/19 09:15 Dose: 500 mg Diltiazem HCl (Cardizem) 30 mg PO Q6HR PRN PRN Reason: HR >120 sustained Diltiazem HCl (Cardizem Cd) 180 mg PO DAILY [facility] Flecainide Acetate (Tambocor) 100 mg PO Q12HR [facility] Last Admin: 11/15/19 09:15 Dose: 100 mg Guaifenesin (Organ-I Nr) 400 mg PO Q4HR [facility] Stop: 11/15/19 17:01 Last Admin: 11/15/19 09:21 Dose: 400 mg Ceftriaxone Sodium 1 gm/ (Sodium Chloride) 100 mls @ 200 mls/hr IVPB Q24HR [facility] Last Admin: 11/15/19 10:34 Dose: 100 mls Melatonin (Melatonin) 3 mg PO HS PRN PRN Reason: Insomnia Last Admin: 11/14/19 20:37 Dose: 3 mg Metoprolol Tartrate (Lopressor) 5 mg IVP Q6H PRN PRN Reason: Cardiac Arrythmia Last Admin: 11/15/19 10:35 Dose: 5 mg Ondansetron HCl (Zofran Odt) 4 mg PO Q6H PRN PRN Reason: Nausea/Vomiting Last Admin: 11/12/19 19:46 Dose: 4 mg Ondansetron HCl (Zofran) 4 mg IVP Q6H PRN PRN Reason: Nausea/Vomiting Last Admin: 11/14/19 09:10 Dose: 4 mg Rivaroxaban (Xarelto) 20 mg PO 1700 BLANK Last Admin: 11/14/19 17:51 Dose: 20 mg Senna/Docusate Sodium (Senokot S) 2 tab PO BID PRN PRN Reason: Constipation Sodium Chloride (Flush - Normal Saline) 10 ml IVF Q12HR BLANK Last Admin: 11/15/19 09:16 Dose: 10 ml Sodium Chloride (Flush - Normal Saline) 10 ml IVF PRN PRN PRN Reason: Saline Flush Last Admin: 11/15/19 10:35 Dose: 10 ml Vital Signs & Weight: Vital Signs Temp Pulse Resp BP BP Pulse Ox 11/15/19 08:00 96.3 F L 144 H 18 117/92 H 96 11/15/19 04:00 100 18 102/73 96 Weight 248 lb 7 oz I/O: I/O 11/14/19 11/15/19 11/16/19 06:59 06:59 06:59 Intake Total 2040 1310 Output Total 750 950 Balance 1290 360 - Quality Measures Condition: Atrial Fibrillation/Flutter (hx or current) (starting xarelto) CV meds: Xarelto: Yes - Physical Exam General: alert & oriented x3, appears well, no apparent distress, speech clear, affect appropriate HEENT: mucus membranes moist, normocephaly, EOMI, jaundice Neck: supple neck, midline trachea, no JVD/HJR Cardiology: regular rate and rhythm, tachycardia (paroxysmal) Lungs: clear to auscultation, decreased breath sounds (RML) Neurology: cranial nerve 2-12 intact, grossly intact, coordination normal Abdomen: unremarkable, active bowel sounds, HJR negative - Chadsvasc Risk factors Hypertension: 1 Female: 1 Risk Score: 2 - Labs Result Diagrams: 11/13/19 04:20 11/14/19 03:55 - EKG Interpretation EKG Method: Telemetry EKG shows: Sinus rhythm (paroxysmal atrial flutter, occasional RVR) - Assessment/Plan Assessment/Plan: 1. Newly found persisting atrial fibrillation/flutter. 2. Possible pneumonia/sepsis. 3. Elevated BMI. 4. Prior history of SVT. 5. History of negative stress test from 08/19/2019 with LVEF of 62%. 6. History of hepatitis C. Still having paroxysmal episodes of Atrial flutter with RVR. Flecainide is working to organize fib in to flutter but loading continues. Increased PO rate control, diltiazem 180mg QD. Minimally symptomatic with RVR episodes Now on Xarelto for Chads2-vasc score of 2 (female, HTN). Plan for outpatient ablation once recovered from pneumonia/medical issues. watch for QTc prolongation with flecainide concurrent with remaining azithromycin and zofran. 12 lead EKG stable. OK for DC. Will follow up in clinic to discuss OP ablation after recovered from pneumonia
[2019-11-15 14:05] VITALS: BP 137/81; TEMP 96.8
--- NOTE | 2019-11-15 16:44 | EKG ---
Test Reason : Blood Pressure : / mmHG Vent. Rate : 071 BPM Atrial Rate : 071 BPM P-R Int : 172 ms QRS Dur : 080 ms QT Int : 422 ms P-R-T Axes : 026 029 069 degrees QTc Int : 458 ms Sinus rhythm with Premature atrial complexes Nonspecific T wave abnormality Abnormal ECG When compared with ECG of 11-NOV-2019 19:59, (Unconfirmed) Sinus rhythm has replaced Atrial flutter Criteria for Inferior infarct are no longer Present Nonspecific T wave abnormality no longer evident in Inferior leads Nonspecific T wave abnormality, worse in Lateral leads Confirmed by DR. Alicia BEACH ([id number]) on 11/15/2019 4:43:25 PM Referred By: BINTA Confirmed By:DR. Alicia BEACH
--- NOTE | 2019-11-15 16:52 | EKG ---
Test Reason : Blood Pressure : / mmHG Vent. Rate : 132 BPM Atrial Rate : 264 BPM P-R Int : 000 ms QRS Dur : 078 ms QT Int : 148 ms P-R-T Axes : -11 027 096 degrees QTc Int : 219 ms Age and gender specific ECG analysis Possible A flutter with 2:1 A-V conduction ST elevation consider inferior injury or acute infarct * ACUTE [place] * Abnormal ECG When compared with ECG of 12-NOV-2019 19:28, (Unconfirmed) Significant changes have occurred Confirmed by DR. Alicia BEACH ([id number]) on 11/15/2019 4:51:43 PM Referred By: JIAN Confirmed By:DR. Alicia BEACH
[2019-11-15] MEDS ORDERED: guaiFENesin 200 MG TAB PO PRN (21:00)
--- NOTE | 2019-11-16 00:38 | DIS ---
DATE OF ADMISSION: 11/11/2019 DATE OF DISCHARGE: 11/15/2019 DISCHARGE DIAGNOSIS: 1. New onset of atrial fibrillation, flutter, probably induced by pneumonia. 2. Pneumonia. 3. History of supraventricular tachycardia. 4. History of hepatitis C. 5. Recurrent arrhythmia and sepsis secondary to pneumonia. 6. Community-acquired pneumonia. DISCHARGE MEDICATIONS: 1. Cardizem CD 180 mg daily. 2. Zithromax 500 mg daily for 7 days. 3. Flecainide 100 mg twice a day. 4. Guaifenesin 400 mg every 4 hours as needed for 5 days. 5. Xarelto 20 mg daily. PHYSICAL EXAMINATION: GENERAL: On the day of discharge, the patient is quite afebrile. She still has some congestion, but overall feeling better. She is normotensive and saturating 98% on room air. CARDIOVASCULAR: Regular rate and rhythm without murmurs, rubs, or gallops. LUNGS: Clear to auscultation. There are some intermittent wheezing and mild crackles. ABDOMEN: Soft, nontender, nondistended. Good bowel sounds. EXTREMITIES: No pitting edema. HOSPITAL COURSE: This is a 59-year-old female, admitted with clinical findings of pneumonia and started on ceftriaxone and Zithromax. She also had AFib with RVR with history of recurrent arrhythmia as well as SVT in the past and no intervention made at that time. She has some chronic venous insufficiency in the lower extremity , can be followed in the outpatient setting as well. She has tingling in her fingers. Again, this is a chronic issue, which can be pursued at her primary care physician's office. Hepatitis C is stable. Regarding her atrial fibrillation, TSH is in the normal range. Echo showed 55%. EF without any valvular abnormalities and started on Xarelto. For rate control, she was started on flecainide at 50 and increased to 100 twice a day along with Cardizem at discharge 180 mg continuous release. She will be following with Dr. Calvert after completion of her antibiotic in 2-3 weeks. DISCHARGE INSTRUCTIONS: 1. Activity, as tolerated. 2. Healthy heart diet. 3. Follow up with the primary care physician in one week. Follow up with Dr. Calvert in 2-3 weeks. TIME SPENT: Discharge time took over 30 minutes. Job ID: [id number] [facility]
== END 2019-11-15 14:52 | disposition home or self-care (01) | DRG 871 ==
LOC: ERS 18:39 → ERHOLD 20:42 → 2NO 11-12 09:57
PROVIDERS: ADMIT Internal Medicine; ATTEND Internal Medicine
DX: A41.9 Sepsis, unspecified organism (principal); J18.9 Pneumonia, unspecified organism; I48.19 Other persistent atrial fibrillation; Z68.41 Body mass index [BMI] 40.0-44.9, adult; I48.91 Unspecified atrial fibrillation; I10 Essential (primary) hypertension; F17.220 Nicotine dependence, chewing tobacco, uncomplicated; R20.2 Paresthesia of skin; I87.2 Venous insufficiency (chronic) (peripheral); E66.9 Obesity, unspecified; Z79.899 Other long term (current) drug therapy; Z86.19 Personal history of other infectious and parasitic diseases
CPT/HCPCS: 36415; 36416; 80048; 80053; 83735; 84443; 85025; 93005; 93010; 93306; 96374; J0696; J1650; J2405; J3490; Q0162

== ENCOUNTER 2020-01-23 16:51 | Emergency (ER) | payer SELFPAY ==
[2020-01-23] MEDS ORDERED: Adenosine 6 MG/2 ML VIAL ONE (17:03)
[2020-01-23 17:45] LABS: #Basophils 0.1 thou/uL (0.0-0.2); #Eosinphils 0.2 thou/uL (0.0-0.7); #Lymphocytes 3.1 thou/uL (1.20-3.40); #Monocytes 0.5 thou/uL (0.11-0.59); #Neutrophils 5.6 thou/uL (1.40-6.50); %Basophils 1.2 % (0.0-1.0); %Eosinophils 2.4 % (0.0-10.0); %Lymphocytes 32.4 % (21.0-51.0); %Monocytes 5.6 % (0.0-10.0); %Neutrophils 58.5 % (42.0-75.0); Mean Corpuscular HGB CONC 32.3 g/dL (32.0-36.0); Mean Corpuscular Hemoglobin 30.4 pg (27.0-31.0); Mean Corpuscular Volume 94.1 fL (78.0-98.0); Mean Platelet Volume 7.6 fL (7.4-10.4); Platelet Count 296 thou/uL (130-400); RBC Distribution Width 12.4 % (11.5-14.5); Red Blood Cell (RBC) Count 5.24 mill/uL (4.20-5.40); White Blood Cell (WBC) Count 9.5 thou/uL (4.8-10.8)
[2020-01-23 17:58] LABS: ALT (SGPT) 84 U/L (8-55); AST (SGOT) 53 U/L (5-34); Albumin 4.1 g/dL (3.5-5.0); Alkaline Phosphatase 93 U/L (40-110); Anion Gap 14 mmol/L (10-20); BUN (Urea Nitrogen) 14 mg/dL (9.8-20.1); Bilirubin, Total 0.6 mg/dL (0.2-1.2); Calc. Creatinine Clearance 0 mL/min (70-130); Calcium 9.5 mg/dL (7.8-10.44); Carbon Dioxide 22 mmol/L (22-29); Chloride 110 mmol/L (98-107); Estimated GFR-MDRD 51; Glucose 141 mg/dL (70-105); Potassium 4.2 mmol/L (3.5-5.1); Protein, Total 7.1 g/dL (6.0-8.3); Sodium 142 mmol/L (136-145)
== END 2020-01-23 18:28 | disposition home or self-care (01) ==
LOC: ERS 16:51
DX: I47.1 Supraventricular tachycardia (principal); F17.210 Nicotine dependence, cigarettes, uncomplicated; I10 Essential (primary) hypertension; I48.91 Unspecified atrial fibrillation
CPT/HCPCS: 80053; 84484; 85025; 93005; 96361; 96374; J0153

== ENCOUNTER 2020-03-05 07:56 | Outpatient (CLI) | payer BC ==
--- NOTE | 2020-03-05 11:34 | MMO ---
Bilateral MAMMO Bilat Screen [facility]. CLINICAL HISTORY: Patient is 59 years old and is seen for screening. The patient has the following family history of breast cancer: cousin female. VIEWS: The views performed were: bilateral craniocaudal with tomosynthesis and bilateral mediolateral oblique with tomosynthesis. This study has been interpreted with the assistance of computer-aided detection. MAMMOGRAM FINDINGS: The breasts are almost entirely fat. There are no suspicious masses, suspicious calcifications, or new areas of architectural distortion. IMPRESSION: THERE IS NO MAMMOGRAPHIC EVIDENCE OF MALIGNANCY. A ROUTINE FOLLOW-UP MAMMOGRAM IN 1 YEAR IS RECOMMENDED. THE RESULTS OF THIS EXAM WERE SENT TO THE PATIENT. ACR BI-RADS Category 1 - Negative MAMMOGRAPHY NOTE: 1. A negative mammogram report should not delay a biopsy if a dominant of clinically suspicious mass is present. 2. Approximately 10% to 15% of breast cancers are not detected by mammography. 3. Adenosis and dense breasts may obscure an underlying neoplasm. Reported by: ALMAS JOHNSON MD Electonically Signed: [id number]
== END 2020-03-05 07:57 | disposition home or self-care (01) ==
LOC: BICMAMMO 07:56
PROVIDERS: ATTEND Physician Assistant
DX: Z12.31 Encounter for screening mammogram for malignant neoplasm of breast (principal); Z80.3 Family history of malignant neoplasm of breast
CPT/HCPCS: 77063; 77067

== ENCOUNTER 2020-04-18 05:27 | Outpatient (CLI) | payer BC, OTHER ==
[2020-04-18 13:59] LABS: Hemoglobin 15.6 g/dL (12.0-16.0); Mean Corpuscular HGB CONC 33.3 g/dL (32.0-36.0); Mean Corpuscular Hemoglobin 31.1 pg (27.0-31.0); Mean Corpuscular Volume 93.5 fL (78.0-98.0); Mean Platelet Volume 7.6 fL (7.4-10.4); Platelet Count 228 thou/uL (130-400); RBC Distribution Width 12.1 % (11.5-14.5); Red Blood Cell (RBC) Count 5.01 mill/uL (4.20-5.40); White Blood Cell (WBC) Count 7.9 thou/uL (4.8-10.8)
[2020-04-18 14:09] LABS: Anion Gap 11 mmol/L (10-20); BUN (Urea Nitrogen) 12 mg/dL (9.8-20.1); Calc. Creatinine Clearance 0 mL/min (70-130); Calcium 8.8 mg/dL (7.8-10.44); Carbon Dioxide 22 mmol/L (22-29); Chloride 110 mmol/L (98-107); Estimated GFR-MDRD 72; Glucose 93 mg/dL (70-105); Potassium 4.3 mmol/L (3.5-5.1); Sodium 139 mmol/L (136-145)
[2020-04-18 14:21] LABS: PTT 29.6 sec (22.9-36.1)
[2020-04-18 14:24] LABS: INR-International Normal Ratio 1.1; Prothrombin Time 13.8 sec (12.0-14.7)
[2020-04-19 14:42] LABS: SARS-CoV-2 MS2 Positive; SARS-CoV-2 N Gene Negative; SARS-CoV-2 S Gene Negative; SARS-CoV-2 by NAA Not Detected (NotDetected); SARS-CoV-2 orf1ab Negative
== END 2020-04-18 05:28 | disposition home or self-care (01) ==
LOC: LABBT 05:27
PROVIDERS: ATTEND Internal Medicine Cardiovascular Disease
DX: Z01.812 Encounter for preprocedural laboratory examination (principal); Z11.59 Encounter for screening for other viral diseases; I48.91 Unspecified atrial fibrillation
CPT/HCPCS: 80048; 85027; 85610; 85730; 87635; 93005; 93010; U0003

== ENCOUNTER → 2020-04-21 | Day surgery (SDC) | payer BC ==
[2020-04-18 15:05] VITALS: BMI 42.5
[~2020-04-21] MED LIST: Dexamethasone 20 MG/5 ML VIAL ONE; Fentanyl 100 MCG/2 ML VIAL ONE; Glycopyrrolate 0.2 MG/ML 5 ML SYRINGE ONE; Heparin 10,000 UNITS/1 ML VIAL ONE; Heparin 25,000 units/D5W 500 ML ONE; Isoproterenol 0.2 MG/1 ML AMP ONE; Ketorolac Tromethamine 30 MG/ML VIAL ONE; Lidocaine 1% PF 5 ML VIAL ONE; Lidocaine 2% Jelly 5 ML TUBE ONE; Ondansetron PF 4 MG/2 ML Vial ONE; PHENYLEPHRINE-NS 100 MCG/ML 10 ML SYRINGE ONE; PROPOFOL 200 MG/20 ML VIAL ONE; Phenylephrine 10 MG/ML VIAL ONE; Rocuronium Bromide 10 MG/ML (10ML VIAL) ONE
--- NOTE | 2020-04-21 20:40 | OP ---
DATE OF PROCEDURE: 04/21/2020 PROCEDURE PERFORMED: Electrophysiology study and radiofrequency ablation. REASON FOR PROCEDURE: Ms. Shrestha is a 60-year-old woman with prior history of persistent atrial fibrillation, typical atrial flutter, instead of pneumonia. She also had subsequently adenosine-terminal supraventricular tachycardia. She has been suppressed with flecainide and now here for an EP study and ablation procedure. DESCRIPTION OF PROCEDURE: The patient received general anesthesia by Anesthesia specialist. The left and right femoral veins were accessed under ultrasound guidance with a multipurpose needle. On the left femoral vein, an 8-Irish sheath x2 was introduced. On the left side, a decapolar and an octapolar catheter were advanced to the right atrium, right ventricle, His bundle, and CS positions. Pacing, mapping, and recording were performed including pacing the left atrium via the CS. The following findings were noted. Baseline rhythm was sinus rhythm with RR 907 milliseconds, KY 179 milliseconds, QRS 71 milliseconds, QT 470 milliseconds, AH 121 milliseconds, HV 37 milliseconds. AV lupe Wenckebach cycle length was 360 milliseconds. Retrograde Wenckebach cycle length was 480 milliseconds with concentric retrograde VA conduction seen. Atrial extrastimuli testing revealed atrial ERP of 600/230 milliseconds. AVNERP is below this. No definite jump was observed at baseline. Burst atrial pacing was performed, demonstrated intermittent aberrantly conducted beats, but with normal HV interval, suggestive of left bundle aberration . No evidence of accessory pathway was seen. Also, there was no dual AV lupe physiology demonstrated at baseline. Burst atrial pacing induced an atrial flutter with cycle length of 240 milliseconds noted. At this point, decision was made to proceed with isthmus dependent flutter ablation, with which the morphology is consistent with. Burst atrial pacing converted atrial flutter to atrial fibrillation, but then that shortly terminated. With right femoral venous access, an 11-Irish intracardiac echo probe was advanced to the right atrium, which was used to visualize the catheters and pericardial space. Also through the right femoral venous access, a ThermoCool SFST catheter advanced via an 8 -Irish sheet to the right atrium. 3D map of the right atrium was attempted to be performed, but due to technical issues, we were not able to use full features of the Carto mapping system. Cavotricuspid isthmus ablation was performed under fluoroscopy monitoring with increase on the transisthmus time from 30 milliseconds to 130 milliseconds with unilateral block demonstrated by longest transisthmus time adjacent to the ablation line. Following that, Isuprel was administered and the isthmus block was again demonstrated on Isuprel. With burst atrial pacing, additional tachycardia was induced with a cycle length of 273 milliseconds. The ventricular override pacing demonstrated the VA-VA response, suggestive of reciprocating AVNRT the timing about 10 milliseconds, suggestive of AV lupe reentrant tachycardia. At this point, slow pathway modification was performed with 30 pagan energy and total duration of 1 minute. Junctional beats were observed during the ablation, but no AV block was seen. Following that, Isuprel was re-administered, the attempted re-inducing any atrial arrhythmias. No atrial arrhythmias were inducible. No atrial flutter or fibrillation or AVNRT was seen. CONCLUSION: 1. Inducible atrial flutter, typical isthmus dependent in morphology and CS activation. 2. Status post cavotricuspid isthmus ablation eliminating re-inducibility atrial flutter and prolonging the transisthmus time to 130 milliseconds. 3. Inducible atrioventricular lupe reentrant tachycardia. 4. Status post slow pathway modification eliminating inducibility of atrioventricular lupe reentrant tachycardia. 5. Evidence of left bundle aberration with burst atrial pacing without evidence of accessory pathway noted. 6. Normal sinus lupe and His-Purkinje function pre and post ablation. 7. No pericardial effusion was noted by fluoroscopic silhouette and intracardiac echocardiogram probe images pre and post ablation. PLAN: Stop flecainide. Continue present anticoagulation. Monitor for recurrent atrial arrhythmias. Consider stopping the anticoagulation in a month if no further atrial fibrillation is seen. If recurrent atrial fibrillation is seen, consider pulmonary venous isolation in the future. Job ID: [id number]
--- NOTE | 2020-04-22 15:49 | EKG ---
Test Reason : Blood Pressure : / mmHG Vent. Rate : 074 BPM Atrial Rate : 074 BPM P-R Int : 186 ms QRS Dur : 090 ms QT Int : 442 ms P-R-T Axes : 039 -16 060 degrees QTc Int : 490 ms Normal sinus rhythm Nonspecific T wave abnormality Inferior infarct , age undetermined cannot be excluded Abnormal ECG Confirmed by GINGER PABLO ([id number]) on 04/22/2020 3:49:00 PM Referred By: JIAN Confirmed By:GINGER PABLO
== END ==
LOC: SDC 08:33
PROVIDERS: ATTEND Internal Medicine Cardiovascular Disease
PROC: 4A023FZ Measurement of Cardiac Rhythm, Percutaneous Approach (ICD-10-PCS; principal; 2020-04-21)
PROC: 02K83ZZ Map Conduction Mechanism, Percutaneous Approach (ICD-10-PCS; principal; 2020-04-21)
PROC: 4A0234Z Measurement of Cardiac Electrical Activity, Percutaneous Approach (ICD-10-PCS; principal; 2020-04-21)
PROC: 02583ZZ Destruction of Conduction Mechanism, Percutaneous Approach (ICD-10-PCS; principal; 2020-04-21)
DX: I48.19 Other persistent atrial fibrillation (principal); I48.3 Typical atrial flutter; I47.1 Supraventricular tachycardia; F17.210 Nicotine dependence, cigarettes, uncomplicated; Z79.01 Long term (current) use of anticoagulants; Z79.899 Other long term (current) drug therapy
CPT/HCPCS: 76942; 93005; 93623; 93653; 93655; 93662; C1730; C1732; C1759; C1884; J1100; J1644; J1885; J2370; J2405; J2704; J3010

== ENCOUNTER 2021-11-10 10:45 | Emergency (ER) | payer SELFPAY ==
[2021-11-10] MEDS ORDERED: traMADol HCl 50 MG TAB ONE (15:55)
== END 2021-11-10 17:15 | disposition home or self-care (01) ==
LOC: ERS 10:45
DX: L03.115 Cellulitis of right lower limb (principal); L97.219 Non-pressure chronic ulcer of right calf with unspecified severity; I10 Essential (primary) hypertension; F17.210 Nicotine dependence, cigarettes, uncomplicated
CPT/HCPCS: 93923

== ENCOUNTER 2022-07-06 01:04 | Inpatient (IN) | payer SELFPAY ==
[2022-07-06 02:34] LABS: #Eosinphils 0.2 thou/uL (0.0-0.7); #Lymphocytes 2.4 thou/uL (1.20-3.40); #Neutrophils 6.9 thou/uL (1.40-6.50); %Basophils 0.3 % (0.0-1.0); %Eosinophils 2.1 % (0.0-10.0); %Lymphocytes 22.9 % (21.0-51.0); %Monocytes 9.2 % (0.0-10.0); %Neutrophils 65.4 % (42.0-75.0); Hemoglobin 15.1 g/dL (12.0-16.0); Mean Corpuscular HGB CONC 32.7 g/dL (32.0-36.0); Mean Corpuscular Hemoglobin 30.3 pg (27.0-31.0); Mean Corpuscular Volume 92.7 fL (78.0-98.0); Mean Platelet Volume 7.5 fL (7.4-10.4); Platelet Count 192 thou/uL (130-400); RBC Distribution Width 13.1 % (11.5-14.5); Red Blood Cell (RBC) Count 4.98 mill/uL (4.20-5.40); White Blood Cell (WBC) Count 10.6 thou/uL (4.8-10.8)
[2022-07-06] MEDS ORDERED: Cefepime 2 GM VIAL ONE (03:18)
[2022-07-06 03:22] LABS: ALT (SGPT) 64 U/L (8-55); AST (SGOT) 40 U/L (5-34); Albumin 3.7 g/dL (3.5-5.0); Alkaline Phosphatase 91 U/L (40-110); Anion Gap 11 mmol/L (10-20); BUN (Urea Nitrogen) 14 mg/dL (9.8-20.1); Bilirubin, Total 1.2 mg/dL (0.2-1.2); Calc. Creatinine Clearance 0 mL/min (70-130); Calcium 9.1 mg/dL (7.8-10.44); Carbon Dioxide 23 mmol/L (22-29); Chloride 107 mmol/L (98-107); Estimated GFR 70; Glucose 195 mg/dL (70-105); Potassium 3.8 mmol/L (3.5-5.1); Protein, Total 7.7 g/dL (6.0-8.3); Sodium 137 mmol/L (136-145)
[2022-07-06] MEDS ORDERED: Lidocaine 1% PF 5 ML VIAL ONE (03:33)
[2022-07-06] MEDS ORDERED: Boostrix 0.5 ML (Tdap) VIAL (>/=7 yrs of age) ONE (04:12)
[2022-07-06] MEDS ORDERED: Vancomycin 1 GM/200 ML BAG ONE ×2 (04:12→07:35)
[2022-07-06] MEDS ORDERED: Ondansetron ODT 4 MG TAB SL PRN (04:30)
[2022-07-06] MEDS ORDERED: Acetaminophen 325 MG TAB PO PRN (04:30)
[2022-07-06] MEDS ORDERED: Ondansetron PF 4 MG/2 ML Vial IVP PRN (04:30)
[2022-07-06] MEDS ORDERED: Vancomycin 1 GM in Premix Bag 1 BAG IVPB SCH (06:00)
[2022-07-06 07:17] VITALS: BMI 44.1
[2022-07-06] MEDS ORDERED: Dextrose 5% in Water 1,000 ML IV PRN (08:55)
[2022-07-06] MEDS ORDERED: HumaLOG 300 UNITS/3 ML VIAL SC PRN ×2 (08:55)
[2022-07-06] MEDS ORDERED: Dextrose 50% Abboject 50 ML SYRINGE SLOW IVP PRN (08:55)
[2022-07-06] MEDS ORDERED: Senokot S 8.6-50 MG TAB PO PRN (09:03)
[2022-07-06] MEDS ORDERED: Nicotine 14 MG PATCH TD PRN (09:03)
[2022-07-06 09:20] LABS: Hemoglobin A1c 6.5 % (4.0-6.0)
[2022-07-06] MEDS ORDERED: Enoxaparin Sodium 40 MG/0.4 ML SYRINGE ONE (09:37)
[2022-07-06] MEDS: Enoxaparin Sodium 40 MG/0.4 ML SYRINGE SC SCH (09:38)
[2022-07-06] MEDS: Sodium Chloride 0.9% 1,000 ML IV SCH ×2 (09:38→20:56)
[2022-07-06] MEDS ORDERED: Acetaminophen 325 MG TAB ONE (10:48)
[2022-07-06 11:41] LABS: SARS-CoV-2 NAA Rapid Test Not Detected (NotDetected)
[2022-07-06] MEDS: Cefepime 2 GM in Sodium Chloride 0.9% 100 ML IVPB SCH (14:31)
[2022-07-06] MEDS ORDERED: Cefepime 2 GM in Sodium Chloride 0.9% 100 ML IVPB SCH (15:00)
[2022-07-06] MEDS: metFORMIN 500 MG TAB PO SCH (17:38)
[2022-07-06] MEDS ORDERED: FLU VACC QS2022-23(6MOS UP)/PF 60 MCG/0.5 ML SYRINGE IM ONE (18:00)
[2022-07-06] MEDS: Famotidine 20 MG TAB PO SCH (20:57)
[2022-07-06] MEDS: VANCOMYCIN 2 GRAM/500 ML BAG 2 GM in Premix Bag 1 BAG IVPB SCH (20:57)
[2022-07-06] MEDS: traMADol HCl 50 MG TAB PO PRN (21:00)
[2022-07-07] MEDS: Cefepime 2 GM in Sodium Chloride 0.9% 100 ML IVPB SCH ×2 (03:40→14:13)
[2022-07-07 06:30] LABS: #Eosinphils 0.3 thou/uL (0.0-0.7); #Lymphocytes 2.8 thou/uL (1.20-3.40); #Monocytes 0.9 thou/uL (0.11-0.59); #Neutrophils 4.9 thou/uL (1.40-6.50); %Basophils 0.3 % (0.0-1.0); %Eosinophils 2.9 % (0.0-10.0); %Lymphocytes 31.9 % (21.0-51.0); %Neutrophils 54.9 % (42.0-75.0); Mean Corpuscular HGB CONC 31.1 g/dL (32.0-36.0); Mean Corpuscular Hemoglobin 29.5 pg (27.0-31.0); Mean Corpuscular Volume 94.6 fL (78.0-98.0); Mean Platelet Volume 7.6 fL (7.4-10.4); Platelet Count 184 thou/uL (130-400); RBC Distribution Width 13.1 % (11.5-14.5); Red Blood Cell (RBC) Count 4.76 mill/uL (4.20-5.40); White Blood Cell (WBC) Count 8.8 thou/uL (4.8-10.8)
[2022-07-07 07:42] LABS: Anion Gap 11 mmol/L (10-20); BUN (Urea Nitrogen) 11 mg/dL (9.8-20.1); Calc. Creatinine Clearance 132 mL/min (70-130); Calcium 8.8 mg/dL (7.8-10.44); Carbon Dioxide 23 mmol/L (22-29); Chloride 106 mmol/L (98-107); Estimated GFR 77; Glucose 112 mg/dL (70-105); Potassium 4.1 mmol/L (3.5-5.1); Sodium 136 mmol/L (136-145)
[2022-07-07] MEDS: Enoxaparin Sodium 40 MG/0.4 ML SYRINGE SC SCH (08:11)
[2022-07-07] MEDS: metFORMIN 500 MG TAB PO SCH (08:12)
[2022-07-07] MEDS: Famotidine 20 MG TAB PO SCH ×2 (08:12→20:29)
[2022-07-07] MEDS: VANCOMYCIN 2 GRAM/500 ML BAG 2 GM in Premix Bag 1 BAG IVPB SCH (09:18)
[2022-07-07] MEDS: Metoprolol Tartrate 25 MG TAB PO SCH ×2 (09:18→20:29)
[2022-07-07] MEDS ORDERED: Polyethylene Glycol 3350 17 GM Packet PO PRN (11:46)
[2022-07-07] MEDS ORDERED: Docusate 100 MG CAP PO PRN (11:46)
[2022-07-07 20:27] LABS: Vancomycin, Trough 12.7 ug/mL
[2022-07-07] MEDS: traMADol HCl 50 MG TAB PO PRN (20:30)
[2022-07-07] MEDS: VANCOMYCIN 1.25 GM/250 ML BAG 1.25 GM in Premix Bag 1 BAG IVPB SCH (21:39)
[2022-07-07] MEDS ORDERED: Vancomycin HCl 1.25 GM in Sodium Chloride 0.9% 250 ML 250 ML IVPB SCH (22:00)
[2022-07-08] MEDS: Cefepime 2 GM in Sodium Chloride 0.9% 100 ML IVPB SCH ×2 (03:48→14:52)
[2022-07-08] MEDS: VANCOMYCIN 1.25 GM/250 ML BAG 1.25 GM in Premix Bag 1 BAG IVPB SCH ×3 (06:01→22:12)
[2022-07-08 07:04] LABS: #Basophils 0.1 thou/uL (0.0-0.2); #Eosinphils 0.3 thou/uL (0.0-0.7); #Lymphocytes 2.7 thou/uL (1.20-3.40); #Monocytes 0.8 thou/uL (0.11-0.59); #Neutrophils 4.2 thou/uL (1.40-6.50); %Basophils 1.1 % (0.0-1.0); %Eosinophils 3.4 % (0.0-10.0); %Lymphocytes 33.3 % (21.0-51.0); %Monocytes 10.4 % (0.0-10.0); %Neutrophils 51.8 % (42.0-75.0); Mean Corpuscular Volume 93.9 fL (78.0-98.0); Mean Platelet Volume 7.7 fL (7.4-10.4); Platelet Count 222 thou/uL (130-400); RBC Distribution Width 12.8 % (11.5-14.5); Red Blood Cell (RBC) Count 4.67 mill/uL (4.20-5.40)
[2022-07-08 07:26] LABS: Anion Gap 9 mmol/L (10-20); BUN (Urea Nitrogen) 13 mg/dL (9.8-20.1); Calc. Creatinine Clearance 151 mL/min (70-130); Carbon Dioxide 24 mmol/L (22-29); Chloride 107 mmol/L (98-107); Estimated GFR 91; Glucose 111 mg/dL (70-105); Sodium 136 mmol/L (136-145)
[2022-07-08] MEDS: Famotidine 20 MG TAB PO SCH ×2 (08:40→21:00)
[2022-07-08] MEDS: Enoxaparin Sodium 40 MG/0.4 ML SYRINGE SC SCH (08:40)
[2022-07-08] MEDS: Metoprolol Tartrate 25 MG TAB PO SCH ×2 (08:40→21:00)
[2022-07-08 22:04] LABS: Vancomycin, Trough 18.3 ug/mL
[2022-07-09] MEDS: Cefepime 2 GM in Sodium Chloride 0.9% 100 ML IVPB SCH ×2 (03:35→14:48)
[2022-07-09] MEDS: VANCOMYCIN 1.25 GM/250 ML BAG 1.25 GM in Premix Bag 1 BAG IVPB SCH ×2 (05:57→15:33)
[2022-07-09 06:51] LABS: #Eosinphils 0.3 thou/uL (0.0-0.7); #Lymphocytes 2.7 thou/uL (1.20-3.40); #Monocytes 0.8 thou/uL (0.11-0.59); #Neutrophils 4.4 thou/uL (1.40-6.50); %Basophils 0.3 % (0.0-1.0); %Eosinophils 4.2 % (0.0-10.0); %Neutrophils 53.5 % (42.0-75.0); Hemoglobin 14.7 g/dL (12.0-16.0); Mean Corpuscular HGB CONC 32.1 g/dL (32.0-36.0); Mean Corpuscular Hemoglobin 29.6 pg (27.0-31.0); Mean Corpuscular Volume 92.3 fL (78.0-98.0); Mean Platelet Volume 7.9 fL (7.4-10.4); Platelet Count 254 thou/uL (130-400); RBC Distribution Width 12.9 % (11.5-14.5); Red Blood Cell (RBC) Count 4.97 mill/uL (4.20-5.40); White Blood Cell (WBC) Count 8.3 thou/uL (4.8-10.8)
[2022-07-09 07:15] LABS: Anion Gap 12 mmol/L (10-20); BUN (Urea Nitrogen) 12 mg/dL (9.8-20.1); Calc. Creatinine Clearance 140 mL/min (70-130); Calcium 9.3 mg/dL (7.8-10.44); Carbon Dioxide 25 mmol/L (22-29); Chloride 106 mmol/L (98-107); Estimated GFR 83; Glucose 103 mg/dL (70-105); Potassium 4.1 mmol/L (3.5-5.1); Sodium 139 mmol/L (136-145)
[2022-07-09] MEDS: Famotidine 20 MG TAB PO SCH (09:45)
[2022-07-09] MEDS: Metoprolol Tartrate 25 MG TAB PO SCH (09:45)
[2022-07-09] MEDS: Enoxaparin Sodium 40 MG/0.4 ML SYRINGE SC SCH (09:46)
[2022-07-12 10:46] VITALS: BP 150/87; TEMP 97.9
== END 2022-07-09 17:20 | disposition home or self-care (01) | DRG 638 ==
LOC: ERS 01:04 → ERHOLD 04:13 → T4-B 12:28
PROVIDERS: ADMIT Internal Medicine; ATTEND Internal Medicine
PROC: 0J9P0ZZ Drainage of Left Lower Leg Subcutaneous Tissue and Fascia, Open Approach (ICD-10-PCS; principal; 2022-07-06)
DX: E11.628 Type 2 diabetes mellitus with other skin complications (principal); L02.416 Cutaneous abscess of left lower limb; L03.116 Cellulitis of left lower limb; L03.115 Cellulitis of right lower limb; I10 Essential (primary) hypertension; B19.20 Unspecified viral hepatitis C without hepatic coma; F17.210 Nicotine dependence, cigarettes, uncomplicated; E11.65 Type 2 diabetes mellitus with hyperglycemia; E11.622 Type 2 diabetes mellitus with other skin ulcer; L98.499 Non-pressure chronic ulcer of skin of other sites with unspecified severity; Z20.822 Contact with and (suspected) exposure to COVID-19; Z98.890 Other specified postprocedural states; Z79.84 Long term (current) use of oral hypoglycemic drugs; Z79.899 Other long term (current) drug therapy
CPT/HCPCS: 10060; 36415; 36416; 80048; 80053; 80202; 83036; 83605; 85025; 87040; 90471; 90715; 96365; 96367; 97139; J0692; J1650; J3370; J3490; J7050

== ENCOUNTER 2023-04-18 19:28 | Inpatient (IN) | payer OTHER, SELFPAY ==
[~2023-04-18 19:28] MED LIST changes: -Dexamethasone 20 MG/5 ML VIAL ONE; -Fentanyl 100 MCG/2 ML VIAL ONE; -Glycopyrrolate 0.2 MG/ML 5 ML SYRINGE ONE; -Heparin 10,000 UNITS/1 ML VIAL ONE; -Heparin 25,000 units/D5W 500 ML ONE; +Iopamidol-370 76% 500 ML MDV (1 ML CHARGE) ONE; -Isoproterenol 0.2 MG/1 ML AMP ONE; -Ketorolac Tromethamine 30 MG/ML VIAL ONE; -Lidocaine 1% PF 5 ML VIAL ONE; -Lidocaine 2% Jelly 5 ML TUBE ONE; -Ondansetron PF 4 MG/2 ML Vial ONE; -PHENYLEPHRINE-NS 100 MCG/ML 10 ML SYRINGE ONE; -PROPOFOL 200 MG/20 ML VIAL ONE; -Phenylephrine 10 MG/ML VIAL ONE; -Rocuronium Bromide 10 MG/ML (10ML VIAL) ONE
[2023-04-18 20:32] LABS: #Basophils 0.1 thou/uL (0.0-0.2); #Eosinphils 0.1 thou/uL (0.0-0.7); #Monocytes 0.5 thou/uL (0.11-0.59); #Neutrophils 4.2 thou/uL (1.40-6.50); %Basophils 0.8 % (0.0-1.0); %Lymphocytes 31.6 % (21.0-51.0); %Monocytes 6.8 % (0.0-10.0); %Neutrophils 58.5 % (42.0-75.0); Mean Corpuscular HGB CONC 31.4 g/dL (32.0-36.0); Mean Corpuscular Hemoglobin 29.5 pg (27.0-31.0); Mean Corpuscular Volume 94.1 fl (78.0-98.0); Mean Platelet Volume 10.1 fL (7.4-10.4); Platelet Count 209 10x3/uL (130-400); Red Blood Cell (RBC) Count 4.74 mill/uL (4.20-5.40); White Blood Cell (WBC) Count 7.1 10x3/uL (4.8-10.8)
[2023-04-18 21:03] LABS: ALT (SGPT) 53 U/L (8-55); AST (SGOT) 52 U/L (5-34); Albumin 3.7 g/dL (3.4-4.8); Alkaline Phosphatase 77 U/L (40-110); Anion Gap 13 mmol/L (10-20); BUN (Urea Nitrogen) 13 mg/dL (9.8-20.1); Bilirubin, Total 0.9 mg/dL (0.2-1.2); Calc. Creatinine Clearance 0 mL/min (70-130); Calcium 8.9 mg/dL (7.8-10.44); Carbon Dioxide 19 mmol/L (23-31); Chloride 110 mmol/L (98-107); Estimated GFR 61; Globulin 3.8 g/dL (2.4-3.5); Glucose 180 mg/dL (80-115); Potassium 4.1 mmol/L (3.5-5.1); Protein, Total 7.5 g/dL (5.8-8.1); Sodium 138 mmol/L (136-145)
[2023-04-18 23:18] LABS: CKMB 3.4 ng/mL (0-6.6)
[2023-04-18] MEDS ORDERED: Furosemide 40 MG/4 ML VIAL SLOW IVP SCH (23:45)
[2023-04-18] MEDS ORDERED: Ipratropium/Albuterol 3 ML NEB NEB PRN (23:47)
[2023-04-19] MEDS ORDERED: HumaLOG 300 UNITS/3 ML VIAL SC PRN (00:03)
[2023-04-19] MEDS ORDERED: Dextrose 50% Abboject 50 ML SYRINGE SLOW IVP PRN (00:03)
[2023-04-19] MEDS ORDERED: Ondansetron PF 4 MG/2 ML Vial IVP PRN (00:03)
[2023-04-19] MEDS ORDERED: Glucagon 1 MG/ML KIT IM PRN (00:03)
[2023-04-19] MEDS ORDERED: Acetaminophen 650 MG Suppository PR PRN (00:03)
[2023-04-19] MEDS ORDERED: Ondansetron ODT 4 MG TAB PO PRN (00:03)
[2023-04-19] MEDS ORDERED: Dextrose 5% in Water 1,000 ML IV PRN (00:03)
[2023-04-19] MEDS ORDERED: methylPREDNISolone Sod Succ 40 MG VIAL IVP SCH (00:15)
[2023-04-19 00:19] LABS: Actual Bicarbonate (HCO3a) 19.4 mEq/L (22-28); Base Excess (BEa) -4.1 mEq/L (-2.0 to +3.0); CO2 Tension 31.6 mmHg (35.0-45.0); Carboxyhemoglobin (COHb) 0.8 gm% (0.0-3.0); Hematocrit-ABG 46 % (36.0-47.0); Hemoglobin (Hb) 15.5 g/dL (12.0-16.0); O2 Tension (PaO2), arterial 66.1 mmHg (> 80.0); pH, Arterial 7.406 (7.35-7.45)
[2023-04-19 00:20] LABS: Analyzer IN Cardio ER; Calcium, Ionized (arterial) 1.18 mmol/L (1.12-1.30); Potassium - ABG Lab 4.29 mmol/L (3.70-5.30); Puncture Site RRA
[2023-04-19 00:31] LABS: Troponin I 0.295 ng/mL (< 0.028)
[2023-04-19] MEDS ORDERED: Ipratropium/Albuterol 3 ML NEB ONE (02:45)
[2023-04-19 03:00] LABS: #Basophils 0.1 thou/uL (0.0-0.2); #Eosinphils 0.1 thou/uL (0.0-0.7); #Monocytes 0.4 thou/uL (0.11-0.59); #Neutrophils 3.9 thou/uL (1.40-6.50); %Basophils 0.7 % (0.0-1.0); %Eosinophils 1.9 % (0.0-10.0); %Lymphocytes 33.5 % (21.0-51.0); %Monocytes 6.1 % (0.0-10.0); %Neutrophils 57.5 % (42.0-75.0); Hemoglobin 14.4 g/dL (12.0-16.0); Mean Corpuscular HGB CONC 32.1 g/dL (32.0-36.0); Mean Corpuscular Hemoglobin 29.9 pg (27.0-31.0); Mean Corpuscular Volume 93.1 fl (78.0-98.0); Mean Platelet Volume 10.3 fL (7.4-10.4); Platelet Count 204 10x3/uL (130-400); RBC Distribution Width 14.2 % (11.5-14.5); Red Blood Cell (RBC) Count 4.81 mill/uL (4.20-5.40); White Blood Cell (WBC) Count 6.8 10x3/uL (4.8-10.8)
[2023-04-19] MEDS: Ipratropium/Albuterol 3 ML NEB NEB SCH ×6 (03:01→22:33)
[2023-04-19 03:34] LABS: Anion Gap 16 mmol/L (10-20); BUN (Urea Nitrogen) 16 mg/dL (9.8-20.1); Calc. Creatinine Clearance 0 mL/min (70-130); Calcium 9.1 mg/dL (7.8-10.44); Carbon Dioxide 18 mmol/L (23-31); Chloride 109 mmol/L (98-107); Estimated GFR 58; Glucose 120 mg/dL (80-115); Magnesium 2.2 mg/dL (1.6-2.6); Potassium 4.2 mmol/L (3.5-5.1); Sodium 139 mmol/L (136-145)
[2023-04-19 03:36] LABS: Troponin I 0.367 ng/mL (< 0.028)
[2023-04-19 05:25] VITALS: BMI 49.6
[2023-04-19] MEDS: Furosemide 40 MG/4 ML VIAL SLOW IVP SCH (09:36)
[2023-04-19] MEDS ORDERED: Atorvastatin Calcium 40 MG TAB PO SCH (09:45)
[2023-04-19] MEDS ORDERED: Spironolactone 25 MG TAB PO SCH (09:45)
[2023-04-19] MEDS ORDERED: [UNRECOGNIZED DRUG - OTHER] IVPB PRN (10:57)
[2023-04-19] MEDS: VANCOMYCIN 2 GRAM/500 ML BAG 2 GM in Premix Bag 1 BAG IVPB SCH (11:56)
[2023-04-19] MEDS ORDERED: Carvedilol 3.125 MG TAB PO SCH (17:00)
[2023-04-19] MEDS: Acetaminophen 325 MG TAB PO PRN (20:49)
[2023-04-20] MEDS: VANCOMYCIN 2 GRAM/500 ML BAG 2 GM in Premix Bag 1 BAG IVPB SCH ×2 (00:10→15:08)
[2023-04-20] MEDS ORDERED: Morphine 2 MG/ML VIAL SLOW IVP SCH (01:15)
[2023-04-20] MEDS: Nitroglycerin 0.4 MG TAB (25 Tab Bottle) SL PRN ×2 (01:19→01:29)
[2023-04-20] MEDS: Ipratropium/Albuterol 3 ML NEB NEB SCH ×6 (02:32→22:21)
[2023-04-20 04:56] LABS: #Eosinphils 0.1 thou/uL (0.0-0.7); #Monocytes 0.7 thou/uL (0.11-0.59); #Neutrophils 4.8 thou/uL (1.40-6.50); %Basophils 0.5 % (0.0-1.0); %Eosinophils 1.3 % (0.0-10.0); %Monocytes 7.8 % (0.0-10.0); %Neutrophils 55.2 % (42.0-75.0); Hemoglobin 13.5 g/dL (12.0-16.0); Mean Corpuscular HGB CONC 31.3 g/dL (32.0-36.0); Mean Corpuscular Hemoglobin 29.6 pg (27.0-31.0); Mean Corpuscular Volume 94.5 fl (78.0-98.0); Platelet Count 187 10x3/uL (130-400); Red Blood Cell (RBC) Count 4.56 mill/uL (4.20-5.40); White Blood Cell (WBC) Count 8.7 10x3/uL (4.8-10.8)
[2023-04-20 05:36] LABS: Anion Gap 13 mmol/L (10-20); BUN (Urea Nitrogen) 19 mg/dL (9.8-20.1); CRP (Inflammatory) 0.56 mg/dL (= or < 0.5); Calc. Creatinine Clearance 129 mL/min (70-130); Calcium 8.3 mg/dL (7.8-10.44); Carbon Dioxide 23 mmol/L (23-31); Chloride 104 mmol/L (98-107); Estimated GFR 66; Glucose 121 mg/dL (80-115); Potassium 3.7 mmol/L (3.5-5.1); Sodium 136 mmol/L (136-145)
[2023-04-20 05:43] LABS: Free T4 (Free Thyroxine) 0.82 ng/dL (0.70-1.48)
[2023-04-20] MEDS ORDERED: Spironolactone 25 MG TAB PO SCH (08:00)
[2023-04-20] MEDS ORDERED: Phenol 118 ML BOT PO PRN (08:02)
[2023-04-20] MEDS ORDERED: Aspirin 325 mg Enteric Coated Tablet PO SCH (09:00)
[2023-04-20] MEDS ORDERED: methylPREDNISolone Sod Succ 40 MG VIAL IVP SCH (09:00)
[2023-04-20] MEDS: Furosemide 40 MG/4 ML VIAL SLOW IVP SCH (09:11)
[2023-04-20] MEDS: guaiFENesin ER 600 MG TAB PO SCH ×2 (09:12→21:14)
[2023-04-20] MEDS ORDERED: fentaNYL 50 mcg/mL 1 mL Vial ONE (11:53)
[2023-04-20] MEDS ORDERED: Midazolam HCl 2 mg/2 ml Vial ONE (11:53)
[2023-04-20] MEDS ORDERED: Heparin 10,000 UNITS/ 10 ML VIAL ONE (11:53)
[2023-04-20] MEDS ORDERED: Lidocaine 1% (PF) 30 ML VIAL ONE (11:53)
[2023-04-20] MEDS ORDERED: Nitroglycerin 50 MG/250 ML BOT 250 ML ONE (11:53)
[2023-04-20] MEDS ORDERED: Adenosine 6 MG/2 ML VIAL ONE (11:54)
[2023-04-20] MEDS ORDERED: Verapamil 5 MG/2 ML VIAL ONE (11:54)
[2023-04-20] MEDS ORDERED: Iopamidol 370 76% 100 ML VIAL ONE (13:41)
[2023-04-20] MEDS ORDERED: Nitroglycerin 0.4 MG TAB (25 Tab Bottle) SL PRN (14:14)
[2023-04-20] MEDS ORDERED: Acetaminophen/Codeine 30-300mg Tablet PO PRN ×2 (14:14)
[2023-04-20] MEDS ORDERED: Sodium Chloride 0.9% 200 ML IV PRN (14:14)
[2023-04-20] MEDS ORDERED: Sodium Chloride 0.9% 1,000 ML IV SCH (14:15)
[2023-04-20] MEDS: HumaLOG 300 UNITS/3 ML VIAL SC PRN (16:41)
[2023-04-20] MEDS: Atorvastatin Calcium 40 MG TAB PO SCH (21:14)
[2023-04-20 23:38] LABS: Vancomycin, Trough 30.1 ug/mL
[2023-04-21] MEDS: VANCOMYCIN 2 GRAM/500 ML BAG 2 GM in Premix Bag 1 BAG IVPB SCH ×2 (00:04→14:24)
[2023-04-21] MEDS ORDERED: VANCOMYCIN 2 GRAM/500 ML BAG 2 GM in Premix Bag 1 BAG IVPB SCH (00:15)
[2023-04-21] MEDS: Ipratropium/Albuterol 3 ML NEB NEB SCH ×6 (02:27→22:25)
[2023-04-21 05:11] LABS: Anion Gap 13 mmol/L (10-20); BUN (Urea Nitrogen) 19 mg/dL (9.8-20.1); Calc. Creatinine Clearance 144 mL/min (70-130); Calcium 8.9 mg/dL (7.8-10.44); Carbon Dioxide 22 mmol/L (23-31); Chloride 106 mmol/L (98-107); Estimated GFR 75; Glucose 124 mg/dL (80-115); Magnesium 2.1 mg/dL (1.6-2.6); Potassium 4.2 mmol/L (3.5-5.1); Sodium 137 mmol/L (136-145)
[2023-04-21] MEDS: guaiFENesin ER 600 MG TAB PO SCH ×2 (09:29→21:12)
[2023-04-21] MEDS: predniSONE 20 MG TAB PO SCH (09:29)
[2023-04-21] MEDS: Aspirin 81 mg Enteric Coated Tablet PO SCH (09:29)
[2023-04-21] MEDS: Spironolactone 25 MG TAB PO SCH (09:29)
[2023-04-21] MEDS: Apixaban 5 MG TAB PO SCH ×2 (09:29→21:12)
[2023-04-21] MEDS: Furosemide 40 MG/4 ML VIAL SLOW IVP SCH (09:30)
[2023-04-21] MEDS: HumaLOG 300 UNITS/3 ML VIAL SC PRN ×2 (11:39→17:06)
[2023-04-21 12:38] LABS: Vancomycin, Random 14.7 ug/mL (See Comment)
[2023-04-21] MEDS: Acetaminophen 325 MG TAB PO PRN (16:19)
[2023-04-21] MEDS: Atorvastatin Calcium 40 MG TAB PO SCH (21:12)
[2023-04-22] MEDS: Ipratropium/Albuterol 3 ML NEB NEB SCH ×4 (02:10→14:16)
[2023-04-22 05:33] LABS: Anion Gap 13 mmol/L (10-20); BUN (Urea Nitrogen) 18 mg/dL (9.8-20.1); Calc. Creatinine Clearance 151 mL/min (70-130); Calcium 9.1 mg/dL (7.8-10.44); Carbon Dioxide 23 mmol/L (23-31); Chloride 105 mmol/L (98-107); Estimated GFR 80; Glucose 90 mg/dL (80-115); Potassium 4.1 mmol/L (3.5-5.1); Sodium 137 mmol/L (136-145)
[2023-04-22] MEDS ORDERED: Furosemide 40 MG TAB PO SCH (07:30)
[2023-04-22] MEDS: Aspirin 81 mg Enteric Coated Tablet PO SCH (09:07)
[2023-04-22] MEDS: guaiFENesin ER 600 MG TAB PO SCH (09:07)
[2023-04-22] MEDS: Apixaban 5 MG TAB PO SCH (09:08)
[2023-04-22] MEDS: Spironolactone 25 MG TAB PO SCH (09:10)
[2023-04-22] MEDS: predniSONE 20 MG TAB PO SCH (09:11)
[2023-04-22] MEDS: HumaLOG 300 UNITS/3 ML VIAL SC PRN (17:03)
[2023-04-22] MEDS: VANCOMYCIN 2 GRAM/500 ML BAG 2 GM in Premix Bag 1 BAG IVPB SCH (18:13)
[2023-04-22 18:16] VITALS: BP 135/86; TEMP 98
== END 2023-04-22 17:45 | disposition home or self-care (01) | DRG 280 ==
LOC: ERS 19:28 → ERHOLD 23:16 → 2NO 04-19 05:22 → OBSVTOIN 04-19 09:24
PROVIDERS: ADMIT Student in an Organized Health Care Education/Training Program; ATTEND Family Medicine
PROC: 4A033R1 Measurement of Arterial Saturation, Peripheral, Percutaneous Approach (ICD-10-PCS; 2023-04-19)
PROC: 4A023N7 Measurement of Cardiac Sampling and Pressure, Left Heart, Percutaneous Approach (ICD-10-PCS; principal; 2023-04-20)
PROC: B2151ZZ Fluoroscopy of Left Heart using Low Osmolar Contrast (ICD-10-PCS; 2023-04-20)
PROC: B2111ZZ Fluoroscopy of Multiple Coronary Arteries using Low Osmolar Contrast (ICD-10-PCS; 2023-04-20)
DX: I11.0 Hypertensive heart disease with heart failure (principal); I21.4 Non-ST elevation (NSTEMI) myocardial infarction; I50.33 Acute on chronic diastolic (congestive) heart failure; J96.01 Acute respiratory failure with hypoxia; Z68.42 Body mass index [BMI] 45.0-49.9, adult; J44.1 Chronic obstructive pulmonary disease with (acute) exacerbation; L03.116 Cellulitis of left lower limb; L03.115 Cellulitis of right lower limb; I48.21 Permanent atrial fibrillation; I47.20 Ventricular tachycardia, unspecified; E66.01 Morbid (severe) obesity due to excess calories; E11.9 Type 2 diabetes mellitus without complications; F17.210 Nicotine dependence, cigarettes, uncomplicated; J45.909 Unspecified asthma, uncomplicated; B19.20 Unspecified viral hepatitis C without hepatic coma; Z79.82 Long term (current) use of aspirin; Z79.899 Other long term (current) drug therapy; Z82.49 Family history of ischemic heart disease and other diseases of the circulatory system; Z20.822 Contact with and (suspected) exposure to COVID-19
CPT/HCPCS: 36415; 36416; 36600; 71045; 71275; 80048; 80053; 80202; 82553; 82805; 83735; 83880; 84439; 84443; 84481; 84484; 85025; 86140; 87635; 93005; 93010; 93306; 93458; 93798; 94640; 94760; 96372; 96374; 96375; 97139; 99152; 99153; C1769; C1894; G0378; J0153; J1644; J1650; J1815; J1940; J2001; J2250; J2272; J2920; J3010; J3370; J7050; J7512; J7620; Q9967

== ENCOUNTER 2024-10-12 07:09 | Inpatient (IN) | payer OTHER, SELFPAY ==
[2024-10-12 07:52] LABS: #Basophils Less than 0.03 10x3/uL (0.0-0.2); #Eosinophils Less than 0.03 10x3/uL (0.0-0.7); %Basophils 0.2 % (0.0-1.0); %Eosinophils 0.1 % (0.0-10.0); %Lymphocytes 11.4 % (21.0-51.0); %Monocytes 1.5 % (0.0-10.0); %Neutrophils 86.2 % (42.0-75.0); Hematocrit 49.3 % (36.0-47.0); Hemoglobin 15.9 g/dL (12.0-16.0); Mean Corpuscular HGB CONC 32.3 g/dL (32.0-36.0); Mean Corpuscular Hemoglobin 29.8 pg (27.0-31.0); Mean Corpuscular Volume 92.3 fL (78.0-98.0); Mean Platelet Volume 10.1 fL (7.4-10.4); Platelet Count 277 10x3/uL (130-400); Red Blood Cell (RBC) Count 5.34 mill/uL (4.20-5.40)
[2024-10-12 08:24] LABS: Anion Gap 15 mmol/L (10-20); BUN (Urea Nitrogen) 9 mg/dL (9.8-20.1); Calc. Creatinine Clearance 0 mL/min (70-130); Carbon Dioxide 17 mmol/L (23-31); Chloride 106 mmol/L (98-107); Estimated GFR 80; Glucose 492 mg/dL (80-115); Magnesium 1.5 mg/dL (1.6-2.6); Potassium 4.1 mmol/L (3.5-5.1); Sodium 134 mmol/L (136-145); Troponin I Less than 0.010 ng/mL (< 0.028)
[2024-10-12] MEDS ORDERED: Insulin Regular, Human 100 UNIT/ML 10 ML VIAL ONE (09:10)
[2024-10-12] MEDS ORDERED: Magnesium 2 GM/50 ML BAG (IN WATER) ONE (09:17)
[2024-10-12] MEDS ORDERED: Nitroglycerin 0.4 MG TAB (25 Tab Bottle) SL PRN (11:34)
[2024-10-12] MEDS ORDERED: Acetaminophen 650 MG Suppository PR PRN (11:35)
[2024-10-12] MEDS ORDERED: Dextrose 5% in Water 1,000 ML IV PRN (11:35)
[2024-10-12] MEDS ORDERED: Dextrose 50% Abboject 50 ML SYRINGE SLOW IVP PRN (11:35)
[2024-10-12] MEDS ORDERED: Ipratropium Bromide 2.5 ml Neb NEB PRN (11:35)
[2024-10-12] MEDS ORDERED: Glucagon 1 MG/ML KIT IM PRN (11:35)
[2024-10-12] MEDS: Ipratropium/Albuterol 3 ML NEB NEB SCH (13:18)
[2024-10-12 14:23] LABS: Troponin I 0.011 ng/mL (< 0.028)
[2024-10-12 14:30] LABS: Lactic Acid 3.19 mmol/L (0.50-2.20)
[2024-10-12] MEDS: Enoxaparin 120 MG/0.8 ML SYRINGE SC SCH (15:16)
[2024-10-12] MEDS: Benzonatate 100 MG CAP PO PRN (15:16)
[2024-10-12] MEDS: Magnesium 2 GM/50 ML(in water) 2 GM in Premix 1 BAG IVPB SCH (15:17)
[2024-10-12] MEDS: Insulin Lispro 100 UNIT/ML 10 ML VIAL SC PRN ×2 (16:35→20:33)
[2024-10-12] MEDS: dilTIAZem 125 MG in Sodium Chloride 0.9% 100 ML IVPB SCH (16:42)
[2024-10-12 18:19] LABS: Troponin I Less than 0.010 ng/mL (< 0.028)
[2024-10-12] MEDS: Famotidine 20 MG TAB PO SCH (20:36)
[2024-10-12] MEDS: Atorvastatin Calcium 40 MG TAB PO SCH (20:36)
[2024-10-12] MEDS: methylPREDNISolone Sod Succ 40 MG VIAL IVP SCH (20:37)
[2024-10-12] MEDS: Amiodarone 450 MG in Dextrose 5% in Water 250 ML IVPB SCH (20:38)
[2024-10-12 22:02] LABS: Lactic Acid 1.98 mmol/L (0.50-2.20)
[2024-10-13 04:43] LABS: #Basophils Less than 0.03 10x3/uL (0.0-0.2); #Eosinophils Less than 0.03 10x3/uL (0.0-0.7); %Basophils 0.1 % (0.0-1.0); %Lymphocytes 13.4 % (21.0-51.0); %Monocytes 3.5 % (0.0-10.0); %Neutrophils 82.3 % (42.0-75.0); Hematocrit 44.5 % (36.0-47.0); Hemoglobin 14.6 g/dL (12.0-16.0); Mean Corpuscular HGB CONC 32.8 g/dL (32.0-36.0); Mean Corpuscular Hemoglobin 30.1 pg (27.0-31.0); Mean Corpuscular Volume 91.8 fL (78.0-98.0); Mean Platelet Volume 10.8 fL (7.4-10.4); Platelet Count 259 10x3/uL (130-400); Red Blood Cell (RBC) Count 4.85 mill/uL (4.20-5.40)
[2024-10-13 05:08] LABS: Anion Gap 13 mmol/L (10-20); BUN (Urea Nitrogen) 12 mg/dL (9.8-20.1); Calc. Creatinine Clearance 150 mL/min (70-130); Calcium 9.1 mg/dL (7.8-10.44); Carbon Dioxide 20 mmol/L (23-31); Chloride 101 mmol/L (98-107); Estimated GFR 94; Glucose 515 mg/dL (80-115); Magnesium 2.2 mg/dL (1.6-2.6); Potassium 5.4 mmol/L (3.5-5.1); Sodium 129 mmol/L (136-145)
[2024-10-13] MEDS: Insulin Regular, Human 100 UNIT/ML 10 ML VIAL IVP SCH (05:36)
[2024-10-13] MEDS: Communication Order-Pharmacy FS ONE (08:12)
[2024-10-13] MEDS: Enoxaparin 120 MG/0.8 ML SYRINGE SC SCH (09:45)
[2024-10-13] MEDS: Aspirin 81 mg Enteric Coated Tablet PO SCH (09:45)
[2024-10-13] MEDS: Insulin Glargine 30 UNITS/0.3 ML VIAL SC SCH ×2 (09:45→21:48)
[2024-10-13] MEDS: cefTRIAXone\\ROCEPHIN 1 GM in Sodium Chloride 0.9% 100 ML IVPB SCH (10:00)
[2024-10-13 10:03] LABS: Hemoglobin A1c Greater than 14.0 % (4.0-6.0)
[2024-10-13] MEDS ORDERED: Insulin Glargine 30 UNITS/0.3 ML VIAL SC SCH ×2 (11:00→21:00)
[2024-10-13] MEDS: Azithromycin 500 MG in Sodium Chloride 0.9% 250 ML 250 ML IVPB SCH (11:54)
[2024-10-13] MEDS: Acetaminophen 325 MG TAB PO PRN (18:08)
[2024-10-13 20:39] VITALS: BMI 42.7
[2024-10-13] MEDS: methylPREDNISolone Sod Succ 40 MG VIAL IVP SCH (21:44)
[2024-10-13] MEDS: guaiFENesin ER 600 MG TAB PO SCH (21:44)
[2024-10-14 05:35] LABS: Anion Gap 10 mmol/L (10-20); BUN (Urea Nitrogen) 15 mg/dL (9.8-20.1); Calc. Creatinine Clearance 160 mL/min (70-130); Calcium 9.4 mg/dL (7.8-10.44); Carbon Dioxide 23 mmol/L (23-31); Chloride 100 mmol/L (98-107); Estimated GFR 99; Glucose 363 mg/dL (80-115); Potassium 4.3 mmol/L (3.5-5.1); Sodium 129 mmol/L (136-145)
[2024-10-14] MEDS: Polyethylene Glycol 3350 17 GM Packet PO SCH (09:47)
[2024-10-14] MEDS: Senokot S 8.6-50 MG TAB PO SCH (09:47)
[2024-10-14] MEDS: Insulin Glargine 30 UNITS/0.3 ML VIAL SC SCH ×2 (09:50→22:08)
[2024-10-14] MEDS: Calcium Carbonate 500 MG ChewTAB PO PRN (15:40)
[2024-10-15 06:36] LABS: Anion Gap 12 mmol/L (10-20); BUN (Urea Nitrogen) 14 mg/dL (9.8-20.1); Calc. Creatinine Clearance 154 mL/min (70-130); Calcium 9.2 mg/dL (7.8-10.44); Carbon Dioxide 26 mmol/L (23-31); Chloride 97 mmol/L (98-107); Estimated GFR 98; Glucose 300 mg/dL (80-115); Potassium 4.2 mmol/L (3.5-5.1); Sodium 131 mmol/L (136-145)
[2024-10-15] MEDS ORDERED: KETAMINE 100 MG/ML (5ML VIAL) ONE (10:37)
[2024-10-15] MEDS ORDERED: PROPOFOL 200 MG/20 ML VIAL ONE (11:12)
[2024-10-15] MEDS ORDERED: CATH FS SCH (15:30)
[2024-10-15] MEDS: Insulin Glargine 30 UNITS/0.3 ML VIAL SC SCH ×2 (16:27→21:07)
[2024-10-15 17:34] LABS: Glucose 520 mg/dL (80-115)
[2024-10-15] MEDS: Insulin Regular, Human 100 UNIT/ML 10 ML VIAL SC SCH (19:15)
[2024-10-15] MEDS: Lisinopril 5 MG TAB PO SCH (21:07)
[2024-10-15] MEDS: Enoxaparin 120 MG/0.8 ML SYRINGE SC SCH (21:08)
[2024-10-16 05:10] LABS: Anion Gap 14 mmol/L (10-20); BUN (Urea Nitrogen) 16 mg/dL (9.8-20.1); Calc. Creatinine Clearance 156 mL/min (70-130); Calcium 8.8 mg/dL (7.8-10.44); Carbon Dioxide 24 mmol/L (23-31); Chloride 102 mmol/L (98-107); Estimated GFR 98; Glucose 158 mg/dL (80-115); Sodium 136 mmol/L (136-145)
[2024-10-16] MEDS: Empagliflozin 10 MG TAB PO SCH (07:00)
[2024-10-16] MEDS ORDERED: PHENYLEPHRINE-NS 100 MCG/ML 10 ML SYRINGE ONE (08:07)
[2024-10-16] MEDS ORDERED: Atropine Sulfate 1 mg/10 ml Syringe ONE (08:07)
[2024-10-16] MEDS ORDERED: Heparin 10,000 UNITS/ 10 ML VIAL ONE (08:07)
[2024-10-16] MEDS ORDERED: fentaNYL 50 mcg/mL 1 mL Vial ONE (08:31)
[2024-10-16] MEDS ORDERED: Midazolam HCl 2 mg/2 ml Vial ONE (08:31)
[2024-10-16] MEDS ORDERED: Iopamidol 370 76% 100 ML VIAL ONE (09:16)
[2024-10-16] MEDS ORDERED: Sodium Chloride 0.9% 200 ML IV PRN (09:16)
[2024-10-16] MEDS ORDERED: Acetaminophen/Codeine 30-300mg Tablet PO PRN ×2 (09:16)
[2024-10-16] MEDS ORDERED: Nitroglycerin 0.4 MG TAB (25 Tab Bottle) SL PRN (09:16)
[2024-10-16] MEDS: Insulin Glargine 30 UNITS/0.3 ML VIAL SC SCH (11:26)
[2024-10-16] MEDS: Amiodarone 200 MG TAB PO SCH (21:59)
[2024-10-17 05:40] LABS: Chloride 105 mmol/L (98-107); Sodium 136 mmol/L (136-145)
[2024-10-17 05:41] LABS: Calcium 8.6 mg/dL (7.8-10.44); Glucose 279 mg/dL (80-115)
[2024-10-17 05:43] LABS: Anion Gap 13 mmol/L (10-20); Carbon Dioxide 22 mmol/L (23-31)
[2024-10-17 05:45] LABS: BUN (Urea Nitrogen) 19 mg/dL (9.8-20.1); Calc. Creatinine Clearance 154 mL/min (70-130); Estimated GFR 96
[2024-10-17] MEDS: Lisinopril 10 MG TAB PO SCH (09:15)
[2024-10-17] MEDS: Apixaban 5 MG TAB PO SCH (09:15)
[2024-10-18 05:15] VITALS: BMI 18.5
[2024-10-18 06:05] LABS: Anion Gap 13 mmol/L (10-20); BUN (Urea Nitrogen) 17 mg/dL (9.8-20.1); Calc. Creatinine Clearance 123 mL/min (70-130); Calcium 8.8 mg/dL (7.8-10.44); Carbon Dioxide 23 mmol/L (23-31); Chloride 105 mmol/L (98-107); Estimated GFR 76; Glucose 121 mg/dL (80-115); Potassium 4.1 mmol/L (3.5-5.1); Sodium 137 mmol/L (136-145)
[2024-10-18] MEDS: Spironolactone 25 MG TAB PO SCH (09:46)
[2024-10-18 11:47] VITALS: BP 119/88; TEMP 98.1
[2024-10-18] MEDS ORDERED: Ipratropium/Albuterol 3 ML NEB NEB PRN (11:51)
== END 2024-10-18 13:59 | disposition home or self-care (01) | DRG 286 ==
LOC: ERS 07:09 → 2NO 12:39 → OBSVTOIN 10-13 11:07
PROVIDERS: ADMIT Student in an Organized Health Care Education/Training Program; ATTEND Family Medicine
PROC: 4A023N7 Measurement of Cardiac Sampling and Pressure, Left Heart, Percutaneous Approach (ICD-10-PCS; principal; 2024-10-13)
PROC: B2111ZZ Fluoroscopy of Multiple Coronary Arteries using Low Osmolar Contrast (ICD-10-PCS; 2024-10-13)
PROC: B2151ZZ Fluoroscopy of Left Heart using Low Osmolar Contrast (ICD-10-PCS; 2024-10-13)
PROC: 3E033XZ Introduction of Vasopressor into Peripheral Vein, Percutaneous Approach (ICD-10-PCS; 2024-10-13)
DX: I48.19 Other persistent atrial fibrillation (principal); I50.33 Acute on chronic diastolic (congestive) heart failure; J44.1 Chronic obstructive pulmonary disease with (acute) exacerbation; Z68.41 Body mass index [BMI] 40.0-44.9, adult; I11.0 Hypertensive heart disease with heart failure; I48.92 Unspecified atrial flutter; I48.0 Paroxysmal atrial fibrillation; E66.01 Morbid (severe) obesity due to excess calories; E11.65 Type 2 diabetes mellitus with hyperglycemia; J44.89 Other specified chronic obstructive pulmonary disease; I25.2 Old myocardial infarction; F17.210 Nicotine dependence, cigarettes, uncomplicated; T38.0X5A Adverse effect of glucocorticoids and synthetic analogues, initial encounter; I08.1 Rheumatic disorders of both mitral and tricuspid valves; Z79.01 Long term (current) use of anticoagulants; Z79.4 Long term (current) use of insulin; Z79.84 Long term (current) use of oral hypoglycemic drugs
CPT/HCPCS: 36415; 36416; 80048; 83036; 83605; 83735; 85025; 93005; 93312; 93458; 93798; 94640; 96374; 96375; 99152; C1769; C1887; J0282; J0456; J0461; J0696; J1644; J1650; J1815; J2250; J2704; J2919; J3010; J3475; J7050; J7070; J7620; Q9967